=== PATIENT | male | born 1995 | race Caucasian/White ===

== ENCOUNTER 2018-03-30 05:42 | Inpatient (IN) | payer MEDICAID ==
[~2018-03-30] VITALS: Ht 182.9 cm; Wt 113.4 kg
[2018-03-30 05:50] VITALS: BP 143/95
[2018-03-30] MEDS ORDERED: ACETAMINOPHEN EXTRA STRENGTH 500 MG TAB PO ONE (06:50)
[2018-03-30] MEDS ORDERED: BACITRACIN OINT 500 UNITS/GM PKT TP ONE (06:50)
[2018-03-30] MEDS ORDERED: KETOROLAC 30 MG/ML VIAL IM ONE (06:50)
[2018-03-30] MEDS ORDERED: PIPERACILLIN/TAZOBACTAM 3.375 GM in DEXTROSE 5% 50 ML IV ONE (08:05)
[2018-03-30 08:50] LABS: HEMOGLOBIN 18.3 g/dL (12.0-18.0)
[2018-03-30] MEDS ORDERED: PIPERACILLIN/TAZOBACTAM 3.375 GM VIAL IV ONE (08:52)
[2018-03-30 09:01] LABS: ANION GAP 23.3 (8-16); CARBON DIOXIDE 23.4 mmol/L (21-32); CHLORIDE 100 mmol/L (98-107); CREATININE 2.4 mg/dL (0.7-1.3); GFR ARICAN-AMERICAN 44 mL/min (>90); GLUCOSE 139 mg/dL (74-106); POTASSIUM 4.7 mmol/L (3.5-5.1); SODIUM SERUM 142 mmol/L (136-145); UREA NITROGEN, BLOOD 29 mg/dL (7-18)
[2018-03-30 09:02] LABS: HEMATOCRIT 54.5 % (36-52); MEAN CORPUSCULAR HEMOGLOBIN 31 pg (27-31); MEAN CORPUSCULAR HGB CONC 34 g/dL (33-37); MEAN CORPUSCULAR VOLUME 92.2 fL (80-94); PLATELET COUNT (AUTO) 275 K/uL (140-450); RED BLOOD CELL COUNT(AUTO) 5.91 MIL/uL (4.20-6.10)
[2018-03-30 09:08] LABS: ACETAMINOPHEN < 0.5 ug/ml (10-30); ALBUMIN 4.9 g/dL (3.4-5.0); ASPARTATE AMINOTRANSFERASE 230 U/L (15-37); SALICYLATE < 2.8 mg/dL (2.8-20.0); TOTAL BILIRUBIN 1.3 mg/dL (0.0-1.0)
[2018-03-30 09:19] LABS: WHITE BLOOD COUNT (AUTO) 30.5 K/uL (4.8-10.8)
[2018-03-30 09:20] LABS: LYMPHOCYTES % (MANUAL) 5 % (20-46); MONOCYTES % (MANUAL) 4 % (5-12)
[2018-03-30] MEDS ORDERED: NACL 0.9% 2,000 ML IV SCH (09:28)
[2018-03-30] MEDS ORDERED: VANCOMYCIN 1,000 MG in DEXTROSE 5% 250 ML IV ONE (09:30)
[2018-03-30] MEDS ORDERED: fentaNYL 0.05 MG/ML VIAL IVP ONE (09:30)
[2018-03-30] MEDS ORDERED: VANCOMYCIN 1,000 MG VIAL ONE (09:45)
[2018-03-30] MEDS ORDERED: ZOLPIDEM 5 MG TAB PO PRN (11:00)
[2018-03-30] MEDS ORDERED: ACETAMINOPHEN 325 MG TAB PO PRN (11:00)
[2018-03-30] MEDS ORDERED: LORazepam 2 MG/ML VIAL IM/IVP PRN (11:00)
[2018-03-30] MEDS ORDERED: DOCUSATE SODIUM 100 MG GELCAP PO PRN (11:00)
[2018-03-30] MEDS ORDERED: ONDANSETRON 4 MG/2 ML VIAL IM/IVP PRN (11:00)
[2018-03-30 11:44] VITALS: BP 142/91
[2018-03-30 11:50] LABS: PROTHROMBIN TIME 10.1 secs (10.8-13.4)
[2018-03-30] MEDS ORDERED: LORazepam 2 MG/ML VIAL IVP PRN (12:30)
[2018-03-30] MEDS ORDERED: VANCOMYCIN PER PHARMACY MC PRN (12:30)
[2018-03-30 12:57] LABS: MAGNESIUM 2.9 mg/dL (1.8-2.4); PHOSPHORUS 5.5 mg/dL (2.5-4.9); THYROID STIMULATING HORMONE 0.79 uIU/mL (0.34-3.74)
[2018-03-30] MEDS: NACL 0.9% 1,000 ML IV SCH ×4 (12:59→23:06)
[2018-03-30] MEDS: PIPER/TAZO 3.375GM/D5W PREMIX 50 ML IV SCH ×2 (13:00→20:28)
[2018-03-30] MEDS ORDERED: CALCIUM ACETATE 667 MG TAB PO SCH (13:37)
[2018-03-30 14:30] LABS: PROTHROMBIN TIME 10.5 secs (10.8-13.4)
[2018-03-30] MEDS: HYDROcodone/APAP 5/325 MG 1 TAB TAB PO PRN ×2 (15:59→20:28)
[2018-03-30 16:00] VITALS: BP 134/85
[2018-03-30 20:30] VITALS: BP 152/81
[2018-03-30] MEDS ORDERED: VANCOMYCIN 1GM/DEXT 5% PREMIX 200 ML IV SCH (23:00)
[2018-03-31] VITALS: BP 117/84
[2018-03-31 00:42] LABS: BARBITURATE, URINE NEG. ng/ml (NEG <=200); BENZODIAZEPINE, URINE NEG. ng/mL (NEG <=200); CANNABINOID, URINE POS. ng/mL (NEG <=50); COCAINE, URINE NEG. ng/mL (NEG <=300); OPIATE, URINE NEG. ng/mL (NEG <=2000); PHENCYCLIDINE SCREEN,URINE NEG. ng/mL (NEG <=25)
[2018-03-31 00:58] LABS: APPEARANCE,URINE SL CLOUDY (CLEAR); BILIRUBIN,URINE 1+ (NEGATIVE); BLOOD, URINE 3+ (NEGATIVE); COLOR,URINE YELLOW (YELLOW); LEUKOCYTE ESTERASE ,URINE NEGATIVE (NEGATIVE); NITRITE, URINE NEGATIVE (NEGATIVE); PH,URINE 5.5 (5.0-9.0); UGLUCOSE NEGATIVE (NEGATIVE)
[2018-03-31 01:00] LABS: RBC,URINE 3-10 (FEW) /HPF (0-5); WBC,URINE 0-5 (RARE) /HPF (0-5)
[2018-03-31 01:01] LABS: HYALINE CASTS, URINE 0-10 /LPF (None Seen); URIC ACID CRYSTALS,URINE 0-10 /HPF (None Seen); URINE AMORPHOUS URATE 3+ /HPF (None Seen)
[2018-03-31] MEDS: HYDROcodone/APAP 10/325 MG 1 TAB TAB PO PRN ×2 (01:05→05:51)
[2018-03-31 04:00] VITALS: BP 122/71
[2018-03-31] MEDS: PIPER/TAZO 3.375GM/D5W PREMIX 50 ML IV SCH ×3 (04:46→21:12)
[2018-03-31 07:04] LABS: BASOPHILS % (AUTO) 0.2 % (0.0-2.0); EOSINOPHILS # (AUTO) 0.1 K/uL (0-0.4); EOSINOPHILS % (AUTO) 0.8 % (0.0-4.0); HEMATOCRIT 43.4 % (36-52); HEMOGLOBIN 14.5 g/dL (12.0-18.0); LYMPHOCYTES # (AUTO) 2.5 K/uL (2.0-11.5); LYMPHOCYTES % (AUTO) 18.3 % (20.5-51.1); MEAN CORPUSCULAR HEMOGLOBIN 31 pg (27-31); MEAN CORPUSCULAR HGB CONC 34 g/dL (33-37); MEAN CORPUSCULAR VOLUME 93.2 fL (80-94); MONOCYTES % (AUTO) 7.5 % (1.7-9.3); NEUTROPHILS # (AUTO) 10.1 K/uL (1.8-7.7); NEUTROPHILS % (AUTO) 73.2 % (42.2-75.2); PLATELET COUNT (AUTO) 203 K/uL (140-450); RED BLOOD CELL COUNT(AUTO) 4.65 MIL/uL (4.20-6.10); WHITE BLOOD COUNT (AUTO) 13.8 K/uL (4.8-10.8)
[2018-03-31] MEDS: NACL 0.9% 1,000 ML IV SCH ×2 (07:41→13:46)
[2018-03-31 08:00] VITALS: BP 128/68
[2018-03-31 08:17] LABS: ANION GAP 13.2 (8-16); CARBON DIOXIDE 27.4 mmol/L (21-32); CREATININE 1.3 mg/dL (0.7-1.3); POTASSIUM 4.6 mmol/L (3.5-5.1)
[2018-03-31 08:22] LABS: MAGNESIUM 2.6 mg/dL (1.8-2.4); PHOSPHORUS 2.8 mg/dL (2.5-4.9)
[2018-03-31] MEDS: VANCOMYCIN 1GM/DEXT 5% PREMIX 200 ML IV SCH ×2 (09:29→17:30)
[2018-03-31] MEDS: LACTOBACILLUS RHAMNOSUS GG 1 EACH CAP PO SCH (09:33)
[2018-03-31] MEDS: THIAMINE 100 MG TAB PO SCH (09:33)
[2018-03-31] MEDS: ARIPiprazole 10 MG TAB PO SCH (09:33)
[2018-03-31] MEDS: MULTIVITAMIN 1 TAB PO SCH (09:33)
[2018-03-31] MEDS: FOLIC ACID 1 MG TAB PO SCH (09:33)
[2018-03-31 12:00] VITALS: BP 131/66
[2018-03-31] MEDS: KETOROLAC 30 MG/ML VIAL IVP PRN ×2 (13:33→21:12)
[2018-03-31 16:00] VITALS: BP 141/91
[2018-03-31 20:00] VITALS: BP 126/64
[2018-04-01] VITALS: BP 112/61
[2018-04-01] MEDS: VANCOMYCIN 1GM/DEXT 5% PREMIX 200 ML IV SCH (00:21)
[2018-04-01 04:00] VITALS: BP 111/64
[2018-04-01] MEDS: PIPER/TAZO 3.375GM/D5W PREMIX 50 ML IV SCH ×3 (04:31→21:16)
[2018-04-01] MEDS: NACL 0.9% 1,000 ML IV SCH ×2 (04:31→16:09)
[2018-04-01 07:55] LABS: BASOPHILS # (AUTO) 0.1 K/uL (0.00-0.22); BASOPHILS % (AUTO) 0.6 % (0.0-2.0); EOSINOPHILS # (AUTO) 0.1 K/uL (0-0.4); EOSINOPHILS % (AUTO) 1.4 % (0.0-4.0); HEMATOCRIT 42.5 % (36-52); HEMOGLOBIN 14.6 g/dL (12.0-18.0); LYMPHOCYTES # (AUTO) 1.9 K/uL (2.0-11.5); LYMPHOCYTES % (AUTO) 17.6 % (20.5-51.1); MEAN CORPUSCULAR HEMOGLOBIN 32 pg (27-31); MEAN CORPUSCULAR HGB CONC 34 g/dL (33-37); MEAN CORPUSCULAR VOLUME 92.1 fL (80-94); MONOCYTES # (AUTO) 0.8 K/uL (0.8-1.0); MONOCYTES % (AUTO) 7.9 % (1.7-9.3); NEUTROPHILS # (AUTO) 7.7 K/uL (1.8-7.7); NEUTROPHILS % (AUTO) 72.5 % (42.2-75.2); PLATELET COUNT (AUTO) 207 K/uL (140-450); RED BLOOD CELL COUNT(AUTO) 4.62 MIL/uL (4.20-6.10); RED CELL DISTRIBUTION WIDTH 12.6 % (11.6-13.7); WHITE BLOOD COUNT (AUTO) 10.6 K/uL (4.8-10.8)
[2018-04-01 08:00] VITALS: BP 112/47
[2018-04-01 08:01] LABS: ANION GAP 12.7 (8-16); CARBON DIOXIDE 28.5 mmol/L (21-32); CREATININE 0.9 mg/dL (0.7-1.3); POTASSIUM 4.2 mmol/L (3.5-5.1)
[2018-04-01 08:45] LABS: MAGNESIUM 2.1 mg/dL (1.8-2.4); PHOSPHORUS 3.3 mg/dL (2.5-4.9)
[2018-04-01] MEDS: FOLIC ACID 1 MG TAB PO SCH (09:05)
[2018-04-01] MEDS: MULTIVITAMIN 1 TAB PO SCH (09:05)
[2018-04-01] MEDS: ARIPiprazole 10 MG TAB PO SCH (09:05)
[2018-04-01] MEDS: THIAMINE 100 MG TAB PO SCH (09:05)
[2018-04-01] MEDS: HYDROcodone/APAP 10/325 MG 1 TAB TAB PO PRN (09:06)
[2018-04-01] MEDS: LACTOBACILLUS RHAMNOSUS GG 1 EACH CAP PO SCH (09:06)
[2018-04-01 10:04] LABS: CKMB RELATIVE INDEX 0.4 (0.0-2.5); CREATINE KINASE MB 22.8 ng/mL (0-3.6)
[2018-04-01] MEDS: VANCOMYCIN 1,250 MG in DEXTROSE 5% 250 ML IV SCH ×2 (10:42→17:49)
[2018-04-01 12:00] VITALS: BP 124/75
[2018-04-01] MEDS ORDERED: SULF-59 PO (14:19)
[2018-04-01] MEDS ORDERED: LEVO750T2 PO (14:19)
[2018-04-01] MEDS ORDERED: LACT10CA1 PO (14:19)
[2018-04-01] MEDS: KETOROLAC 30 MG/ML VIAL IVP PRN ×2 (15:06→21:17)
[2018-04-01 16:00] VITALS: BP 99/62
[2018-04-01 20:00] VITALS: BP 116/85
[2018-04-02] VITALS: BP 115/80
[2018-04-02] MEDS: VANCOMYCIN 1,250 MG in DEXTROSE 5% 250 ML IV SCH (02:00)
[2018-04-02 04:00] VITALS: BP 124/63
[2018-04-02] MEDS: NACL 0.9% 1,000 ML IV SCH (04:39)
[2018-04-02] MEDS: PIPER/TAZO 3.375GM/D5W PREMIX 50 ML IV SCH ×2 (05:35→13:28)
[2018-04-02] MEDS: KETOROLAC 30 MG/ML VIAL IVP PRN (06:45)
[2018-04-02 07:02] LABS: BASOPHILS % (AUTO) 0.4 % (0.0-2.0); EOSINOPHILS # (AUTO) 0.2 K/uL (0-0.4); EOSINOPHILS % (AUTO) 2.8 % (0.0-4.0); LYMPHOCYTES # (AUTO) 2.2 K/uL (2.0-11.5); LYMPHOCYTES % (AUTO) 24.7 % (20.5-51.1); MEAN CORPUSCULAR HEMOGLOBIN 31 pg (27-31); MEAN CORPUSCULAR HGB CONC 34 g/dL (33-37); MONOCYTES # (AUTO) 0.7 K/uL (0.8-1.0); MONOCYTES % (AUTO) 7.8 % (1.7-9.3); NEUTROPHILS # (AUTO) 5.6 K/uL (1.8-7.7); NEUTROPHILS % (AUTO) 64.3 % (42.2-75.2); PLATELET COUNT (AUTO) 208 K/uL (140-450); RED BLOOD CELL COUNT(AUTO) 4.45 MIL/uL (4.20-6.10); RED CELL DISTRIBUTION WIDTH 12.9 % (11.6-13.7); WHITE BLOOD COUNT (AUTO) 8.8 K/uL (4.8-10.8)
[2018-04-02 07:25] LABS: ANION GAP 10.8 (8-16); CARBON DIOXIDE 28.9 mmol/L (21-32); CREATININE 0.8 mg/dL (0.7-1.3); POTASSIUM 4.7 mmol/L (3.5-5.1)
[2018-04-02 08:00] VITALS: BP 125/71
[2018-04-02] MEDS: FOLIC ACID 1 MG TAB PO SCH (08:38)
[2018-04-02] MEDS: THIAMINE 100 MG TAB PO SCH (08:38)
[2018-04-02] MEDS: MULTIVITAMIN 1 TAB PO SCH (08:38)
[2018-04-02] MEDS: LACTOBACILLUS RHAMNOSUS GG 1 EACH CAP PO SCH (08:38)
[2018-04-02] MEDS: ARIPiprazole 10 MG TAB PO SCH (08:38)
[2018-04-02] MEDS ORDERED: VANCOMYCIN 1,500 MG in NACL 0.9% 500 ML IV SCH (11:00)
[2018-04-02] MEDS: HYDROcodone/APAP 10/325 MG 1 TAB TAB PO PRN (12:33)
[2018-04-02 14:03] VITALS: BP 102/58
[2018-04-02] MEDS ORDERED: HYDR-5123 PO (14:23)
== END 2018-04-02 16:10 | disposition home health service (06) | DRG 812 ==
LOC: MED 05:42 → MTU 11:00
PROVIDERS: ADMIT General Practice; ATTEND General Practice
PROC: 3E0234Z Introduction of Serum, Toxoid and Vaccine into Muscle, Percutaneous Approach (ICD-10-PCS; principal; 2018-03-30)
DX: T40.7X1A Poisoning by cannabis (derivatives), accidental (unintentional), initial encounter (principal); N17.0 Acute kidney failure with tubular necrosis; A41.9 Sepsis, unspecified organism; G92 Toxic encephalopathy; L03.115 Cellulitis of right lower limb; E83.39 Other disorders of phosphorus metabolism; E83.41 Hypermagnesemia; L03.116 Cellulitis of left lower limb; M62.82 Rhabdomyolysis; F31.9 Bipolar disorder, unspecified; W01.0XXA Fall on same level from slipping, tripping and stumbling without subsequent striking against object, initial encounter; F15.10 Other stimulant abuse, uncomplicated; F12.10 Cannabis abuse, uncomplicated; E86.0 Dehydration; M25.561 Pain in right knee; K70.9 Alcoholic liver disease, unspecified; X31.XXXA Exposure to excessive natural cold, initial encounter; Z23 Encounter for immunization; Z82.49 Family history of ischemic heart disease and other diseases of the circulatory system; Y93.89 Activity, other specified; Y92.89 Other specified places as the place of occurrence of the external cause; Y99.8 Other external cause status; Z87.891 Personal history of nicotine dependence; Z71.51 Drug abuse counseling and surveillance of drug abuser
CPT/HCPCS: 36415; 70450; 71045; 72125; 73562; 73610; 73630; 76700; 80048; 80053; 80202; 80305; 81001; 82550; 82553; 83036; 83605; 83690; 83735; 83874; 84100; 84134; 84443; 84484; 85025; 85610; 85730; 87040; 87070; 87081; 87186; 90471; 90715; 93005; 96361; 96365; 96367; 96372; 96375; 99285; G0480; G0482; J1885; J2543; J3010; J3370; J7030; J7060; Q0092

== ENCOUNTER 2018-06-19 10:16 | Emergency (ER) | payer MEDICAID ==
[~2018-06-19] VITALS: Ht 185.4 cm; Wt 97.5 kg
[~2018-06-19 10:16] MED LIST: HYDR-5123 PO; LACT10CA1 PO; LEVO750T2 PO; SULF-59 PO
--- NOTE | 2018-06-19 10:17 | NUR ---
PT BIBA BLS WITH [place] [employer] ON 5150 TO BED 5
[2018-06-19 10:29] VITALS: BP 162/111
[2018-06-19] MEDS ORDERED: NACL 0.9% 1,000 ML IV ONE ×2 (10:30→11:05)
--- NOTE | 2018-06-19 10:35 | NUR ---
BIBA ON HOLD FOR SI. UNWITTNESSED INGESTION OF 1 UNOPENED BOTTLE OF SLEEP AID QTY. 100 (DIPHENHYDRAMINE 25MG). PT DENIES N/V/D/ RECENT ILLNESS. PT STATES HE "HAS HAD BODY PARTS STOLEN FROM HIM." PT STATES 0/10 PAIN AT THIS TIME. PT IS SINUS TACHY AT 136, 02 SAT 98% RA. PT IS VERY SLOW TO COMPREHEND QUESTIONS AND REPLY TO STATEMENTS. SKIN IS PINK/WARM/DRY; AAOX4 WITH EVEN AND STEADY GAIT; PATIENT POSITIONED FOR COMFORT; HOB ELEVATED; BEDRAILS UP X1; BED DOWN. ER MD MADE AWARE OF PT STATUS. SUICIDE PRECAUTIONS IN PLACE, SITTER AT BEDSIDE.
[2018-06-19 10:52] LABS: BASOPHILS % (AUTO) 0.4 % (0.0-2.0); EOSINOPHILS % (AUTO) 0.2 % (0.0-4.0); HEMATOCRIT 46.5 % (36-52); HEMOGLOBIN 16.5 g/dL (12.0-18.0); LYMPHOCYTES # (AUTO) 0.8 K/uL (2.0-11.5); LYMPHOCYTES % (AUTO) 9.3 % (20.5-51.1); MEAN CORPUSCULAR HEMOGLOBIN 32 pg (27-31); MEAN CORPUSCULAR HGB CONC 36 g/dL (33-37); MEAN CORPUSCULAR VOLUME 89.5 fL (80-94); MONOCYTES # (AUTO) 0.8 K/uL (0.8-1.0); NEUTROPHILS # (AUTO) 6.9 K/uL (1.8-7.7); NEUTROPHILS % (AUTO) 81.1 % (42.2-75.2); PLATELET COUNT (AUTO) 201 K/uL (140-450); RED BLOOD CELL COUNT(AUTO) 5.19 MIL/uL (4.20-6.10); RED CELL DISTRIBUTION WIDTH 12.1 % (11.6-13.7); WHITE BLOOD COUNT (AUTO) 8.6 K/uL (4.8-10.8)
--- NOTE | 2018-06-19 11:02 | NUR ---
SPOKE TO OBI FROM POISON CONTROL REGARDING PATIENT. RECOMMENDATIONS: EKG,TYLENOL,ASPIRIN,CK,MAGNESIUM,CALCIUM,BLOOD ALCOHOL LEVELS. URINE DRUG SKIN. SEIZURE PRECAUTION. DR. NORIEGA MADE AWARE
[2018-06-19 11:10] LABS: ALBUMIN 4.4 g/dL (3.4-5.0); ANION GAP 24.4 (8-16); ASPARTATE AMINOTRANSFERASE 18 U/L (15-37); CARBON DIOXIDE 17.3 mmol/L (21-32); CHLORIDE 100 mmol/L (98-107); GFR ARICAN-AMERICAN 120 mL/min (>90); GLUCOSE 104 mg/dL (74-106); SALICYLATE 4.2 mg/dL (2.8-20.0); SODIUM SERUM 139 mmol/L (136-145); TOTAL BILIRUBIN 0.6 mg/dL (0.0-1.0); UREA NITROGEN, BLOOD 5 mg/dL (7-18)
[2018-06-19 11:19] LABS: ACETAMINOPHEN < 0.5 ug/ml (10-30); POTASSIUM 2.7 mmol/L (3.5-5.1)
--- NOTE | 2018-06-19 11:30 | NUR ---
PT RESTING IN BED, NO ACUTE DISTRESS NOTED. SITTER AT BEDSIDE
[2018-06-19] MEDS ORDERED: POTASSIUM CHLORIDE 10 MEQ TABER PO ONE (11:35)
--- NOTE | 2018-06-19 12:14 | NUR ---
URINE COLLECTED AND SENT TO LAB
[2018-06-19 12:17] VITALS: BP 152/103
--- NOTE | 2018-06-19 12:34 | NUR ---
PT RESTING IN BED, SITTER AT BEDSIDE
[2018-06-19 13:51] LABS: BARBITURATE, URINE NEGATIVE ng/ml (NEG <=200); BENZODIAZEPINE, URINE NEGATIVE ng/mL (NEG <=200); CANNABINOID, URINE NEGATIVE ng/mL (NEG <=50); COCAINE, URINE NEGATIVE ng/mL (NEG <=300); OPIATE, URINE NEGATIVE ng/mL (NEG <=2000); PHENCYCLIDINE SCREEN,URINE NEGATIVE ng/mL (NEG <=25)
--- NOTE | 2018-06-19 13:55 | NUR ---
PATIENT RIPPED OUT IV AND RAN OFF THE UNIT AND OUT TO THE PARKING LOT. PD CALLED.
--- NOTE | 2018-06-19 13:56 | NUR ---
PATIENT STATED HE WANTS TO GO THE BATHROOM/COMMODE PROVIDED. PATIENT TOOK OFF IV FLUIDS AND STARTED RUNNING TOWARDS 2 LOCK DOORS THE GONE OUT TO THE DOUBLE DOORS TOWARDS ADMITTING. SECURITY/VICTORIA.PD ALERTED, CODE YANEZ ACTIVATED.
--- NOTE | 2018-06-19 14:08 | NUR ---
RUSLAN FROM POISON CONTROL CALLED FOR UPDATE. INFORMED RUSLAN THAT PATIENT JUST ELOPED. RUSLAN MADE AWARE THAT BEFORE THE ELOPEMENT,PATIENT AWAKE/ALERT/FORGETFUL WITH CONFUSION.
[2018-06-20] MEDS ORDERED: RISP0.5T3 PO (13:41)
[2018-06-20] MEDS ORDERED: RIS1 PO (17:34)
--- NOTE | 2018-06-24 06:53 | NUR ---
Late entry. IV bolus completed at 1230. IV at 100cc/hr ended at 1350
== END 2018-06-19 13:56 | disposition left against medical advice (07) ==
LOC: MED 10:16
DX: R41.82 Altered mental status, unspecified (principal); E87.6 Hypokalemia; R45.851 Suicidal ideations; F20.9 Schizophrenia, unspecified; R00.0 Tachycardia, unspecified; Z79.899 Other long term (current) drug therapy
CPT/HCPCS: 36415; 80053; 80305; 82550; 85025; 93005; 96360; 96361; 99285; G0480; G0482; J7030; 99284

== ENCOUNTER 2018-06-19 14:30 | Inpatient (IN) | payer MEDICAID ==
[~2018-06-19] VITALS: Ht 185.4 cm; Wt 92.5 kg
--- NOTE | 2018-06-19 14:30 | NUR ---
BIB POLICE. PATIENT BROUGHT BACK TO ER AFTER ELOPING. BROUGHT IN EARLIER FOR ATTEMPTED SUICIDE.
[2018-06-19 14:36] VITALS: BP 141/86
--- NOTE | 2018-06-19 14:36 | NUR ---
PT BIB [place] [employer] AFTER ELOPEMENT
[2018-06-19] MEDS ORDERED: ZOLPIDEM 5 MG TAB PO PRN (14:55)
[2018-06-19] MEDS ORDERED: HYDROcodone/APAP 5/325 MG 1 TAB TAB PO PRN (14:55)
[2018-06-19] MEDS ORDERED: ONDANSETRON 4 MG/2 ML VIAL IM/IVP PRN (14:55)
[2018-06-19] MEDS ORDERED: ACETAMINOPHEN 325 MG TAB PO PRN (14:55)
[2018-06-19] MEDS ORDERED: MORPHINE SULFATE 2 MG/ML SYR IVP PRN (14:55)
[2018-06-19] MEDS ORDERED: DOCUSATE SODIUM 100 MG GELCAP PO PRN (14:55)
--- NOTE | 2018-06-19 15:15 | NUR ---
URINE COLLECTED AND SENT TO LAB
--- NOTE | 2018-06-19 15:30 | NUR ---
RECEIVED REPORT FROM CHARGE NURSE. PATIENT ARRIVED FROM ER. PATIENT AWAKE AND ALERT, LYING ON BED. DX OF SI. RESPIRATIONS EVEN AND UNLABORED ON ROOM AIR, VS WNL. 1:1 SITTER ORDERED WITH SOFT RESTRAINT IN PLACE. DENIES ANY SUICIDAL IDEATION AT THE MOMENT, PATIENT QUIET AND COOPERATIVE. NO SIGN OF AGGRESSIVE BEHAVIOR AT THIS TIME. IV SITE TO RIGHT AC, CURRENTLY SL, ASYMPTOMATIC, INTACT. UPDATED PATIENT WITH PLAN OF CARE, PATIENT VERBALIZED UNDERSTANDING, SAFETY PRECAUTIONS IN PLACE, BED IN LOW LOW LOCKED POSITION. WILL CONTINUE TO MONITOR.
--- NOTE | 2018-06-19 15:32 | NUR ---
PT TAKEN TO TELE FLOOR BY RNS RE AND AMADEO
--- NOTE | 2018-06-19 15:51 | NUR ---
PT ADMITTED TO [facility] BED 109B
[2018-06-19 16:00] VITALS: BP 141/94
--- NOTE | 2018-06-19 16:15 | NUR ---
SOFT RESTRAINTS BACK ON. PATIENT'S FAMILY AT BEDSIDE. NO SIGN OF AGGRESSIVE BEHAVIOR AT THIS TIME. SAFETY PRECAUTIONS IN PLACE, 1:1 SITTER AT SIDE, WILL CONTINUE TO MONITOR PATIENT.
--- NOTE | 2018-06-19 16:20 | NUR ---
DR. BANKS IN TO SEE THE PATIENT. WILL WAIT FOR HIS EVALUATION AND ORDERS.
--- NOTE | 2018-06-19 16:30 | NUR ---
RESTRAINTS REMOVED FOR CIRCULATION AND TOILETRIES. PATIENT'S FAMILY AT BEDSIDE. NO SIGN OF AGGRESSIVE BEHAVIOR AT THIS TIME. PATIENT DID STATE THAT HE WANTED TO "SLEEP FOREVER". NO PLAN AT THIS TIME. SAFETY PRECAUTIONS IN PLACE, 1:1 SITTER AT SIDE, WILL CONTINUE TO MONITOR PATIENT.
[2018-06-19 16:34] LABS: PROTHROMBIN TIME 10.9 secs (10.8-13.4)
[2018-06-19] MEDS: NACL 0.9% 1,000 ML IV SCH (17:00)
--- NOTE | 2018-06-19 17:30 | NUR ---
RESTRAINTS REMOVED FOR PATIENT TO EAT DINNER. PATIENT QUIET BUT COOPERATIVE. PARENTS AT BEDSIDE. MRSA SCREENING DONE. PICTURE OF RIGHT BIG TOE WOUND TAKEN. SAFETY PRECAUTIONS IN PLACE, 1:1 SITTER AT SIDE. WILL CONTINUE TO MONITOR PATIENT.
[2018-06-19] MEDS ORDERED: LORazepam 2 MG/ML VIAL IM/IVP PRN (18:40)
[2018-06-19] MEDS ORDERED: POTASSIUM CHLORIDE 10 MEQ TABER PO SCH (19:00)
--- NOTE | 2018-06-19 19:19 | NUR ---
REPORT GIVEN TO LUMBER RACKER NURSE AT BEDSIDE FOR CONTINUITY OF CARE. PATIENT LYING IN BED, PATIENT IN STABLE CONDITION.
--- NOTE | 2018-06-19 19:20 | NUR ---
RECEIVED PATIENT AWAKE LYING ON BED WITH FAMILY MEMBERS AT BEDSIDE. PATIENT 1:1 SITTER WITH SOFT RESTRAINT IN PLACE. DENIES ANY SUICIDAL IDEATION.NO SIGN OF AGGRESSIVE BEHAVIOR AT THIS TIME. BED IN LOW LOW LOCKED POSITION. EXPLAINED PLAN OF CARE. WILL CONTINUE TO MONITOR.
[2018-06-19 20:00] VITALS: BP 123/87
--- NOTE | 2018-06-19 21:00 | NUR ---
SOFT RESTRAINTS RELEASE FOR CIRCULATION AND BATHROOM BREAK. SKIN CHECK DONE, GOOD CIRCULATION NOTED. NO SIGN OF SUICIDAL/HOMICIDAL IDEATION.1:1 SITTER AT BEDSIDE.
--- NOTE | 2018-06-19 21:00 | NUR ---
SEEN PATIENT RESTING ON BED WITH SOFT RESTRAINTS IN PLACE. SITTER IN FRONT OF THE DOOR FOR CONSTANT OBSERVATION. NO S/S OF SUICIDAL IDEATION NOTED AT THIS TIME. BED IN LOW LOCKED POSITION. WILL CONTINUE TO MONITOR.
--- NOTE | 2018-06-19 22:36 | NUR ---
SEEN X-RAY PORTABLE TRACK CREW CHIEF IN THE PATIENT ROOM.
--- NOTE | 2018-06-19 23:40 | NUR ---
PATIENT TAKEN TO RADIOLOGY FOR CT SCAN BY WC. PATIENT IN STABLE CONDITION.
[2018-06-20] VITALS: BP 136/95
--- NOTE | 2018-06-20 00:05 | NUR ---
PATIENT BACK TO ROOM FROM CT.
--- NOTE | 2018-06-20 00:06 | NUR ---
V/S TAKEN AND RECORDED. 1:1 SITTER FOR CONSTANT OBSERVATION. NO SUICIDAL IDEATION PRESENTED. WILL CONTINUE TO MONITOR.
--- NOTE | 2018-06-20 02:00 | NUR ---
1:1 SITTER AT BEDSIDE. CHECKED PATIENT ASLEEP. NO SI/HI NOTED. ALL NEEDS ATTENDED. RESTRAINTS RELEASE AND CHECK FOR CIRCULATION WNL. BED IN LOW LOCKED POSITION. ALL PRECAUTIONARY MEASURES APPLIED. WILL CONTINUE TO MONITOR.
[2018-06-20 04:00] VITALS: BP 121/82
--- NOTE | 2018-06-20 04:00 | NUR ---
SEEN RESTING COMFORTABLY IN BED WITH SOFT RESTRAINTS ON BOTH HANDS. NO SUICIDAL IDEATION NOTED. ALL NEEDS ATTENDED. 1:1 SITTER FOR CONSTANT WATCH.
[2018-06-20] MEDS: LORazepam 2 MG/ML VIAL IM/IVP PRN (06:44)
--- NOTE | 2018-06-20 07:15 | NUR ---
ENDORSEMENT GIVEN TO AM SHIFT RN AT BEDSIDE. CALL LIGHT WITHIN REACH. 1:1 SITTER AT BEDSIDE. PATIENT IN STABLE CONDITION.
--- NOTE | 2018-06-20 07:17 | NUR ---
RECEIVED BEDSIDE REPORT FROM COSMETIC SALES ASSISTANT NURSE. PATIENT IS RESTING ON BED AT THIS TIME. AOX 3, TO NAME, PLACE, AND TIME. ABLE TO MAKE NEEDS KNOWN. RESPIRATION ASYMMETRICAL AND UNLABORED. DENIES PAIN AND NO SIGNS OF DISTRESS NOTED. IV ON R AC 20 , INTACT AND PATIENT, INFUSING PER MD ORDER. SKIN CLEAN AND DRY. ABLE TO AMBULATE WITH STEADY GAIT. URANAL IS AT BEDSIDE. 1:1 SITTER WITH SOFT WRIST RESTRAINT IN PLACE. TELE MONITOR ATTACHED. DENIES ANY SUICIDAL IDEATION. NO SIGN OF AGGRESSIVE BEHAVIOR AT THIS TIME. DISCUSSED PLAN OF CARE WITH PATIENT, AND PATIENT VERBALIZED UNDERSTANDING. BED IN LOW LOW LOCKED POSITION.
[2018-06-20 08:00] VITALS: BP 114/74
[2018-06-20 08:01] LABS: MAGNESIUM 1.8 mg/dL (1.8-2.4); PHOSPHORUS 3.1 mg/dL (2.5-4.9); THYROID STIMULATING HORMONE 1.32 uIU/mL (0.34-3.74)
--- NOTE | 2018-06-20 08:46 | NUR ---
PATIENT HAS BEEN SCREENED AND CATEGORIZED LOW NUTRITION RISK. PATIENT WILL BE SEEN WITHIN 7 DAYS OF ADMISSION. 06/26/[address]
[2018-06-20] MEDS ORDERED: OLANZapine 5 MG TAB PO SCH (09:00)
[2018-06-20] MEDS: MULTIVITAMIN 1 TAB PO SCH (09:27)
[2018-06-20] MEDS: NACL 0.9% 1,000 ML IV SCH (09:27)
--- NOTE | 2018-06-20 09:28 | NUR ---
ADMINISTERED MEDICATIONS PER MD ORDER. PATIENT TOLERATED WELL. DENIES ANY SUICIDAL IDEATION AT THIS TIME. NO SIGN OF AGGRESSIVE BEHAVIORS AT THIS TIME. RELEASED RESTRAINTS AND PERFORMED ROM.
--- NOTE | 2018-06-20 09:45 | NUR ---
PATIENT'S SISTER SHARLA IS AT BEDSIDE AND TALKING TO PATIENT. NO AGGRESSIVE BEHAVIORS NOTED AT THIS TIME.
--- NOTE | 2018-06-20 10:00 | NUR ---
DR HAMILTON IS TALKING TO PATIENT AND PATIENT'S SISTER SHARLA AT BEDSIDE.
--- NOTE | 2018-06-20 11:26 | NUR ---
PATIENT'S PARENTS AND SISTER ARE AT BEDSIDE TALKING TO PATIENT. PATIENT IS SITTING UP ON BED. DENIED SUICIDAL IDEATION. NO AGGRESSIVE BEHAVIOR NOTED.
--- NOTE | 2018-06-20 12:05 | NUR ---
CM NOTE PER ATTENDING PHYSICIAN/RESIDENT DR. BANKS, THE PATIENT IS NOT YET MEDICALLY CLEARED AT THIS TIME, WAITING FOR POTASSIUM LEVEL AND PODIATRY CONSULT BUT WILL NEED TO GO TO PSYCH FACILITY WHEN MEDICALLY CLEARED. FAXED [phone] AND CLINICAL PACKET TO [facility] [phone] # [phone] AND INFORMED THEM WAITING FOR PATIENT TO BE MEDICALLY CLEARED. I GAVE [facility] THE NUMBER TO THE NURSING STATION WHERE PATIENT IS IN CASE THEY CALL AT A LATER TIME. DR. BANKS AWARE.
[2018-06-20 12:06] LABS: ANION GAP 18.7 (8-16); CARBON DIOXIDE 23.1 mmol/L (21-32); CREATININE 0.9 mg/dL (0.7-1.3); POTASSIUM 3.8 mmol/L (3.5-5.1)
[2018-06-20 12:27] VITALS: BP 108/66
[2018-06-20] MEDS: NACL 0.45% 1,000 ML IV SCH (13:27)
--- NOTE | 2018-06-20 13:29 | NUR ---
PATIENT IS RESTING ON BED AT THIS TIME. DENIES SUICIDAL IDEATION. NO AGGRESSIVE BEHAVIOR NOTED. SAFETY MEASURES IN PLACE.
[2018-06-20] MEDS ORDERED: RISP0.5T3 PO (13:41)
[2018-06-20] MEDS ORDERED: POTASSIUM CHLORIDE 10 MEQ TABER PO SCH (14:00)
--- NOTE | 2018-06-20 14:32 | NUR ---
911 Emergency Dispatcher Note: I called patient's sister Marilou Sumner to obtain information about patient, no answer, left message.
--- NOTE | 2018-06-20 15:09 | NUR ---
No updates from contacted facilties at this time. will continue to look for placement throughout shift. will update unit when new information has been received. No beds available at following hospitals: Called [facility] and s/w Marnie, No vacancies at this time. Called [facility] and s/w Jorge, No Beds available today. Called [facility] and s[facility]w [facility], No beds available today. Called [facility] and s/w Toña, reviewing charts at this time. Called [facility] and s/w Kelsie, no Beds at this time. Called [facility] and s/w Xavier, No beds available at this time. Called [facility] and s/w Bekah, No vacancies at this time. Called [facility] and s/w Jevon, they have no beds at this time and are still reviewing charts. Called [facility] and s/w Ag they have no beds at this time and are still reviewing charts. Called [facility] and s/w Angie, they have no beds at this time and are still reviewing charts.
--- NOTE | 2018-06-20 15:20 | NUR ---
PATIENT WAS ABLE TO AMBULATE TO THE BATHROOM WITH STEADY GAIT. NO SUICIDAL IDEATION VOICED. NO AGGRESSIVE BEHAVIOR NOTED.
--- NOTE | 2018-06-20 15:20 | NUR ---
Camera Assembler Note: I received a call from patient's sister Marilou Sumner . I obtained the following information from Marilou about patient. Patient lives at home with his parents. Patient refuses to seek mental health services. He refuses to take psychiatric medication. Marilou attempted to become patient's conservator. However, patient passed required psychiatric evaluation ordered by court. Marilou stated patient knows exactly what to say to psychiatrist/psychologist during psych evaluation so he can be cleared. She is aware inpatient psych placement is pending. She is also aware that accepting psychiatric hospital might not be local since beds at psychiatric units are limited. She verbalized understanding and stated she does not mind if patient is transfer to a psychiatric hospital that is far away from patient's home. Advertising Consultant and/or Vehicle Return Associate will follow up as needed.
[2018-06-20 16:00] VITALS: BP 123/76
[2018-06-20] MEDS ORDERED: RIS1 PO (17:34)
--- NOTE | 2018-06-20 18:10 | NUR ---
PATIENT IS RESTING ON BED. DENIED SUICIDAL IDEATION. NO AGGRESSIVE BEHAVIOR NOTED. SAFETY MEASURES IN PLACE. 1:1 SITTER.
--- NOTE | 2018-06-20 19:09 | NUR ---
ENDORSED PATIENT AT BEDSIDE TO [facility] SHIFT NURSE FOR CONTINUITY OF CARE. PATIENT IS IN STABLE CONDITION.
--- NOTE | 2018-06-20 19:09 | NUR ---
RECEIVED REPORT FROM JENIFFER RN DAYSHIFT NURSE AT BEDSIDE FOR CONTINUITY OF CARE, PT IN STABLE CONDITION.
--- NOTE | 2018-06-20 19:45 | NUR ---
PT RESTRAINT ORDERED ENDED AT 2033. PT RESTING IN BED SINCE BEGINNING OF SHIFT NO S/S OF PAIN OR DISTRESS NOTED. RESTRAINTS RELEASED FROM WRIST CAP REFILL LESS THAN 2 SECONDS, SKIN INTACT NO S/S OF INJURY. SPOKE WITH BERNARD AKHTAR RESIDENT MD RESTRAINT ORDER NOT RENEWED AT THIS TIME, WILL MONITOR FOR ANY S/S OF BEHAVIOR. SITTER AT BEDSIDE. V/S FOLLOWS T 98.3 P 90 R 18 B/P 124/74 02 96% ON R/A. PT HAS NO C/O VOICED AT THIS TIME. DRESSING TO LEFT FOOT DRY AND INTACT NO DRAINAGE NOTED.
[2018-06-20 20:00] VITALS: BP 118/68
--- NOTE | 2018-06-20 21:15 | NUR ---
PT GIVEN ORDERED SEROQUEL PO NO BEHAVIOR ISSUES NOTED. SITTER AT BEDSIDE.
[2018-06-20] MEDS: risperiDONE 1 MG TAB PO SCH (21:28)
--- NOTE | 2018-06-20 23:30 | NUR ---
RECEIVED A CALL FROM JAVI AT [facility] REGARDING IF PT HAD BEEN FULLY. JAVI TOLD THAT PT HAS BEEN CLEARED MEDICALLY AND ALSO BY TOP PRECIPITATOR OPERATOR HELPER. PT ONLY WAITING FOR PLACEMENT. JAVI SAID THAT HE WILL CONTINUE TO LOOK FOR FACILITIES FOR PLACEMENT.
--- NOTE | 2018-06-20 23:33 | NUR ---
Spoke with patients ISAIAH Iglesias and patient is medically cleared with potassium clearance and Podiatry consult, will begin looking for psychiatric bed placement with contracted facilities.
--- NOTE | 2018-06-20 23:43 | NUR ---
Called the following contracted psych facilities regarding bed placement. [facility], spoke with Gerardo. No beds available at this time and are not accepting any packets right now. [facility], spoke with Gage. No beds available tonight. [facility], spoke with nursing steam fitter supervisor maintenance Rufino. No beds available tonight in psych. [facility], spoke with Luisa. No beds available tonight but they will accept a packet for review for morning shift. [facility], spoke with Shannon. They can not accommodate any outside patients because they have admissions in there ED they will have to take first. Will update the unit if any new information.
[2018-06-21] VITALS: BP 124/74
--- NOTE | 2018-06-21 00:30 | NUR ---
PT IN BED V/S FOLLOWS T 98.5 P 88 R 18 B/P 118/68 02 97% ON ROOM AIR. NO S/S OF PAIN OR DISTRESS NOTED NO BEHAVIOR ISSUES NOTED. BED LOW AND SITTER AT BEDSIDE.
--- NOTE | 2018-06-21 03:30 | NUR ---
PT IN BED SLEEPING 1/2 NS RUNNING AT 60MLS/HR ORDERED. PT ASLEEP IN LOW BED NO S/S OF PAIN OR DISTRESS NOTED, NO BEHAVIORS NOTED THIS SHIFT. 1:1 SITTER AT BEDSIDE.
--- NOTE | 2018-06-21 07:30 | NUR ---
Received report from pm nurse Kelsie. Pt in bed, awake, calm & quiet, no signs of distress. RAC IV asymptomatic with ongoing 1/2 NS @ 60 ml/hr. Sitter at bedside for continuous monitoring.
[2018-06-21 08:00] VITALS: BP 131/89
[2018-06-21] MEDS: risperiDONE 1 MG TAB PO SCH ×2 (08:39→20:23)
[2018-06-21] MEDS: MULTIVITAMIN 1 TAB PO SCH (08:39)
[2018-06-21 10:00] LABS: BASOPHILS # (AUTO) 0.1 K/uL (0.00-0.22); BASOPHILS % (AUTO) 0.7 % (0.0-2.0); EOSINOPHILS # (AUTO) 0.3 K/uL (0-0.4); HEMATOCRIT 46.6 % (36-52); LYMPHOCYTES # (AUTO) 2.2 K/uL (2.0-11.5); LYMPHOCYTES % (AUTO) 28.4 % (20.5-51.1); MEAN CORPUSCULAR HEMOGLOBIN 32 pg (27-31); MEAN CORPUSCULAR HGB CONC 34 g/dL (33-37); MEAN CORPUSCULAR VOLUME 91.5 fL (80-94); MONOCYTES # (AUTO) 0.6 K/uL (0.8-1.0); MONOCYTES % (AUTO) 7.5 % (1.7-9.3); NEUTROPHILS # (AUTO) 4.5 K/uL (1.8-7.7); NEUTROPHILS % (AUTO) 59.4 % (42.2-75.2); PLATELET COUNT (AUTO) 192 K/uL (140-450); RED BLOOD CELL COUNT(AUTO) 5.09 MIL/uL (4.20-6.10); RED CELL DISTRIBUTION WIDTH 12.8 % (11.6-13.7); WHITE BLOOD COUNT (AUTO) 7.6 K/uL (4.8-10.8)
[2018-06-21 10:09] LABS: ANION GAP 15.4 (8-16); CARBON DIOXIDE 25.7 mmol/L (21-32); CREATININE 0.9 mg/dL (0.7-1.3); POTASSIUM 3.1 mmol/L (3.5-5.1)
--- NOTE | 2018-06-21 11:20 | NUR ---
Dr. Scott at bedside to asses pt.
--- NOTE | 2018-06-21 11:35 | NUR ---
Sister Marilou arrived to visit pt, brought jon dangelo. No strings/pointy items found. Addendum: 06/21/18 at 1200 by Sayra Vaca RN Addendum: Sister sitting at bedside. Pt quietly lying in bed with his face turned away from her. No signs of distress.
--- NOTE | 2018-06-21 11:40 | NUR ---
Sister left room with jon dangelo. Pt remains quietly lying in bed. Sitter remains at bedside.
[2018-06-21] MEDS: KCL 20 MEQ/WATER INJ PREMIX 100 ML IV SCH ×2 (11:47→13:47)
--- NOTE | 2018-06-21 12:54 | NUR ---
Wound tx completed for right foot. Mild malodor present. No c/o pain during tx.
--- NOTE | 2018-06-21 13:50 | NUR ---
Pt's parents arrived to visit pt. Pt resting quietly in bed, interacting appropriately. No signs of distress. Sitter at bedside.
[2018-06-21] MEDS: LORazepam 2 MG/ML VIAL IM/IVP PRN (14:46)
--- NOTE | 2018-06-21 14:46 | NUR ---
Pt's parents had left the room. Pt lying in bed, noticed to be restless & shaking his right leg. Asked pt if he is upset. Pt states he just feels generally anxious about everything all of a sudden. Active listening & reassurance provided. Ativan administered. Sitter at bedside.
--- NOTE | 2018-06-21 15:46 | NUR ---
Ativan reassessment: Pt asleep in bed, respirations even & nonlabored, FLACC 0. No signs of distress. Sitter at bedside.
[2018-06-21 16:00] VITALS: BP 117/75
--- NOTE | 2018-06-21 19:12 | NUR ---
Report given to pm nurse Yoshi. Pt in bed, asleep, respirations even & nonlabored, FLACC 0.
--- NOTE | 2018-06-21 19:13 | NUR ---
RECEIVED PT SLEEPING, OPEN EYES TO NAME, CALM AND QUIET, IVF INFUSING WELL, DRESSING TO RT FOOT DRY AND INTACT, NO SIGNS OF PAIN, PT WENT BACK TO SLEEP, STILL ON 5150 HOLD, SITTER IN PLACE.
--- NOTE | 2018-06-21 19:50 | NUR ---
FAMILY CAME IN TO VISIT, PT ATE DINNER AND CONSUMED 50%, PT INTERACTING WITH FAMILY MEMBERS AND OCCASIONALLY SMILING, AMBULATORY WITH STEADY GAIT, ALL NEEDS ATTENDED.
[2018-06-21] MEDS ORDERED: ZOLPIDEM 5 MG TAB PO SCH (20:30)
--- NOTE | 2018-06-21 21:40 | NUR ---
FAMILY MEMBERS LEFT, PT WENT BACK TO SLEEP MONITORED CLOSELY.
[2018-06-21] MEDS: NACL 0.45% 1,000 ML IV SCH (23:11)
[2018-06-22] VITALS: BP 110/60
--- NOTE | 2018-06-22 | NUR ---
PT SLEEPING, EASILY AROUSABLE, VITAL SIGNS STABLE, DENIES ANY PAIN, IVF INFUSING WELL, CONTINUE TO MONITOR CLOSELY, SITTER AT BEDSIDE.
--- NOTE | 2018-06-22 03:30 | NUR ---
PT SLEEPING, NO SIGNS OF DISTRESS, IVF INFUSING WELL, MONITORED CLOSELY.
--- NOTE | 2018-06-22 06:30 | NUR ---
PT SLEEPING, EASILY AROUSABLE, TOLERABLE PAIN TO RT FOOT, ENCOURAGE TO CALL IF PAIN GET WORST, CALM AND COOPERATIVE AT THIS TIME, MONITORED CLOSELY.
--- NOTE | 2018-06-22 07:16 | NUR ---
PT SLEEPING, NO SIGNS OF DISTRESS, REPORT GIVEN TO RN ISSA FOR CONTINUITY OF CARE
--- NOTE | 2018-06-22 07:17 | NUR ---
Report received from pm nurse Yoshi. Pt resting in bed, awake, no signs of distress. RAC IV asymptomatic with ongoing 1/2 NS @ 60ml/hr. Sitter at bedside.
[2018-06-22 07:31] LABS: BASOPHILS # (AUTO) 0.1 K/uL (0.00-0.22); BASOPHILS % (AUTO) 0.9 % (0.0-2.0); EOSINOPHILS # (AUTO) 0.2 K/uL (0-0.4); EOSINOPHILS % (AUTO) 3.4 % (0.0-4.0); HEMATOCRIT 45.8 % (36-52); HEMOGLOBIN 16.2 g/dL (12.0-18.0); LYMPHOCYTES # (AUTO) 2.3 K/uL (2.0-11.5); LYMPHOCYTES % (AUTO) 33.9 % (20.5-51.1); MEAN CORPUSCULAR HEMOGLOBIN 32 pg (27-31); MEAN CORPUSCULAR HGB CONC 35 g/dL (33-37); MEAN CORPUSCULAR VOLUME 90.1 fL (80-94); MONOCYTES # (AUTO) 0.4 K/uL (0.8-1.0); MONOCYTES % (AUTO) 6.5 % (1.7-9.3); NEUTROPHILS # (AUTO) 3.8 K/uL (1.8-7.7); NEUTROPHILS % (AUTO) 55.3 % (42.2-75.2); PLATELET COUNT (AUTO) 197 K/uL (140-450); RED BLOOD CELL COUNT(AUTO) 5.08 MIL/uL (4.20-6.10); RED CELL DISTRIBUTION WIDTH 12.4 % (11.6-13.7); WHITE BLOOD COUNT (AUTO) 6.8 K/uL (4.8-10.8)
[2018-06-22 08:00] VITALS: BP 132/93
[2018-06-22] MEDS: risperiDONE 1 MG TAB PO SCH ×2 (08:57→20:26)
[2018-06-22] MEDS: MULTIVITAMIN 1 TAB PO SCH (08:57)
[2018-06-22 09:28] LABS: ANION GAP 16.1 (8-16); CARBON DIOXIDE 25.6 mmol/L (21-32); CREATININE 0.8 mg/dL (0.7-1.3); POTASSIUM 3.7 mmol/L (3.5-5.1)
[2018-06-22] MEDS: LORazepam 2 MG/ML VIAL IM/IVP PRN (09:46)
--- NOTE | 2018-06-22 09:46 | NUR ---
Lorazepam admin: Pt c/o feeling generally anxious. Pt states that he used to run around to relieve his anxiety. A few weeks ago, [place] the [place], got lost for 2 days until his family found him. Pt states that is how he got frostbite on his right foot. Pt cont that a group of 60 people from his family came out to find him. Pt able to engage in reminiscence. Validation & reassurance provided. Lorazepam administered.
[2018-06-22 10:21] LABS: MAGNESIUM 1.8 mg/dL (1.8-2.4)
--- NOTE | 2018-06-22 10:46 | NUR ---
Pt quietly resting in bed, awake & verbal. No signs of distress. Respirations even & nonlabored. RAC IV asymptomatic with ongoing 1/2 NS @ 60ml/hr.
--- NOTE | 2018-06-22 11:30 | NUR ---
Pt's parents at bedside to visit. Pt interacting appropriately. Dr. Trejo (psychiatrist) also arrived to assess pt.
--- NOTE | 2018-06-22 13:16 | NUR ---
RT at pt bedside
--- NOTE | 2018-06-22 14:54 | NUR ---
ROUNDED ON PT. PT IN BED SITTING QUIETLY. SITTER AT BEDSIDE. WILL CONTINUE TO MONITOR
[2018-06-22] MEDS: NACL 0.45% 1,000 ML IV SCH (15:05)
--- NOTE | 2018-06-22 15:37 | NUR ---
provided wound care cleansed with NS and provided new dressing. sitter at bedside. will continue to monitor
[2018-06-22 16:00] VITALS: BP 116/70
--- NOTE | 2018-06-22 16:18 | NUR ---
Asked Dr. Yi if ok to dc IVF d/t pt eating/drinking well po. Per physician, ok to dc IVF & keep IV saline locked. Order noted & carried out. IVF of 1/2 NS discontinued, RAC IV intact & patent.
--- NOTE | 2018-06-22 17:15 | NUR ---
Pt's parents arrived to visit pt. Pt interacting appropriately. Sitter at bedside.
--- NOTE | 2018-06-22 17:39 | NUR ---
Received call from [facility] ([facility]) requesting for physician documentation to continue 5150 hold. Doc faxed to number provided by [facility] ([phone]). Per [facility], still awaiting placement to inpatient psych.
--- NOTE | 2018-06-22 17:55 | NUR ---
Pt's parents left unit at this time. Pt lying in bed, calm & quiet, no signs of distress. Sitter at bedside.
--- NOTE | 2018-06-22 19:12 | NUR ---
endorsed pt to plant operator/shift supervisor nurse. pt resting comfortably in bed sitter at bedside. all safety measures in place pt stable
--- NOTE | 2018-06-22 19:14 | NUR ---
RECEIVED PT SLEEPING, OPEN EYES TO NAME, CALM AND QUIET, DRESSING TO RT FOOT DRY AND INTACT, DENIES PAIN, STILL ON 5150 HOLD, SITTER IN PLACE.
--- NOTE | 2018-06-22 20:30 | NUR ---
PT REFUSED DUE MEDICATION STATED "IM OK, I DON'T NEED IT", RISK AND BENEFITS EXPLAINED BUT PT STILL REFUSING, CALM AND COOPERATIVE, PT WENT BACK TO SLEEP, MONITORED CLOSELY, SITTER IN PLACE.
--- NOTE | 2018-06-22 20:52 | NUR ---
Still no beds available at [place] , [facility], and [facility] , will notify Pts nurse if placement is found.
--- NOTE | 2018-06-22 22:20 | NUR ---
FAMILY MEMBER VISITING, PT INTERACTING APPROPRIATELY, CALM AND COOPERATIVE, MONITORED CLOSELY, SITTER IN PLACE.
[2018-06-23] VITALS: BP 126/67
[2018-06-23] MEDS: LORazepam 2 MG/ML VIAL IM/IVP PRN ×2 (01:02→09:54)
--- NOTE | 2018-06-23 01:06 | NUR ---
PT AWAKE, ANXIOUS AND CANT GO BACK TO SLEEP, STATED TOO MAY THINGS GOING THROUGH MY MIND, MEDICATED PRN WITH ATIVAN, MONITORED CLOSELY, SITTER IN PLACE.
[2018-06-23] MEDS ORDERED: ZOLPIDEM 5 MG TAB ONE (02:15)
--- NOTE | 2018-06-23 02:17 | NUR ---
PT STILL AWAKE, PACING INSIDE THE ROOM, ANXIOUS AND REQUESTING FOR ATIVAN, MADE AWARE THAT IT IS STILL TOO EARLY FOR ANOTHER DOSE, OFFERED AMBIEN AND PT AMENABLE, AMBIEN PO GIVEN, PT WENT BACK TO BED, MONITORED CLOSELY.
--- NOTE | 2018-06-23 03:50 | NUR ---
PT SLEEPING, NO SIGNS OF DISTRESS, MONITORED CLOSELY, SITTER IN PLACE.
--- NOTE | 2018-06-23 07:10 | NUR ---
PT AWAKE, NO SIGNS OF DISTRESS, REPORT GIVEN TO ISAIAH WREN FOR CONTINUITY OF CARE.
--- NOTE | 2018-06-23 07:15 | NUR ---
RECEIVED PT FROM BACK WINDER NURSECHINEDU, PT IS AWAKE AND LYING ON THE BED, ON A 5150 HOLD 1:1 SITTER ON THE BEDSIDE PT HAS AN IV LINE ON THE RT AC G. 20 ON SALINE LOCK, PT DENIES PAIN AND NO SIGN OF DISTRESS NOTED.
[2018-06-23 07:36] LABS: BASOPHILS # (AUTO) 0.1 K/uL (0.00-0.22); BASOPHILS % (AUTO) 0.8 % (0.0-2.0); EOSINOPHILS # (AUTO) 0.1 K/uL (0-0.4); EOSINOPHILS % (AUTO) 1.3 % (0.0-4.0); HEMATOCRIT 45.4 % (36-52); LYMPHOCYTES # (AUTO) 2.4 K/uL (2.0-11.5); MEAN CORPUSCULAR HEMOGLOBIN 32 pg (27-31); MEAN CORPUSCULAR HGB CONC 35 g/dL (33-37); MEAN CORPUSCULAR VOLUME 90.2 fL (80-94); MONOCYTES # (AUTO) 0.5 K/uL (0.8-1.0); MONOCYTES % (AUTO) 6.5 % (1.7-9.3); NEUTROPHILS % (AUTO) 57.4 % (42.2-75.2); PLATELET COUNT (AUTO) 219 K/uL (140-450); RED BLOOD CELL COUNT(AUTO) 5.03 MIL/uL (4.20-6.10); RED CELL DISTRIBUTION WIDTH 12.5 % (11.6-13.7)
[2018-06-23 07:56] LABS: ANION GAP 12.4 (8-16); CARBON DIOXIDE 29.6 mmol/L (21-32); CREATININE 0.8 mg/dL (0.7-1.3)
[2018-06-23 08:00] VITALS: BP 118/61
--- NOTE | 2018-06-23 08:30 | NUR ---
PT IS AWAKE AND SEATED ON THE BED,1:1 SITTER ON THE BEDSIDE, VITAL SIGNS TAKEN AND IS WITHIN NORMAL LIMIT. NO SIGN OF DISTRESS NOTED AND WILL MONITOR PT.
[2018-06-23 08:46] LABS: PHOSPHORUS 4.2 mg/dL (2.5-4.9)
[2018-06-23] MEDS: risperiDONE 1 MG TAB PO SCH ×2 (09:53→20:34)
[2018-06-23] MEDS: MULTIVITAMIN 1 TAB PO SCH (09:54)
--- NOTE | 2018-06-23 10:02 | NUR ---
PT IS AWAKE AND SEATED ON THE BED, VERBALIZED A FEELING OF ANXIETY AND ASKED FOR AN ATIVAN, VITAL SIGNS CHECKED AND BP IS 122/83, PULSE IS 84, O2 SATURATION IS 100% AND RESPIRATION IS 18/MIN, ORAL AND IV MEDICATIONS WERE GIVEN AND PT TOLERATED IT. NO SIGN OF DISTRESS NOTED
--- NOTE | 2018-06-23 12:30 | NUR ---
PT IS EATING HIS LUNCH QUIETLY NOW.
--- NOTE | 2018-06-23 14:00 | NUR ---
PT IS LYING ON THE BED AND SLEEPING NOW.
[2018-06-23 16:00] VITALS: BP 110/62
--- NOTE | 2018-06-23 16:00 | NUR ---
PT IS AWAKE WITH PARENTS AND1:1 SITTER ON THE BEDSIDE,WOUND ON THE DORSAL SIDE OF THE RT FOOT WAS CLEANED AND REINFORCED WITH XEROFORM DRESSING AND CLING WRAP, VITAL SIGNS TAKEN AND IS WITHIN NORMAL LIMIT. NO SIGN OF DISTRESS NOTED AND WILL MONITOR PT.
--- NOTE | 2018-06-23 18:00 | NUR ---
PT IS EATING HIS DINNER WITH FAMILY ON THE BEDSIDE, 1:1 SITTER ON THE BEDSIDE WELL.
--- NOTE | 2018-06-23 18:28 | NUR ---
DR. DONOVAN CAME FOR ROUNDS. PT CALM AND ABLE TO ANSWER . QUESTIONS. ABLE TO UNDERSTAND DR'S EXPLANATION.
--- NOTE | 2018-06-23 19:20 | NUR ---
ENDORSED PT [facility] SHIFT NURSESONAM FOR CONTINUITY OF CARE, 1:1 SITTER ON THE BEDSIDE, PT IS STABLE AT THIS TIME.
--- NOTE | 2018-06-23 19:21 | NUR ---
RECEIVED AM SHIFT NURSE,SIENA. PT IS AWAKE AND LYING ON THE BED, ON A 5150 HOLD 1:1 SITTER ON THE BEDSIDE PT HAS AN IV LINE ON THE RT AC G. 20 ON SALINE LOCK, PT DENIES PAIN AND NO SIGN OF DISTRESS NOTED.
--- NOTE | 2018-06-23 19:22 | NUR ---
FAMILY MEMBER VISITING, PT INTERACTING APPROPRIATELY, CALM AND COOPERATIVE, MONITORED CLOSELY
--- NOTE | 2018-06-23 20:57 | NUR ---
[facility] WAS HERE AND INTERVIEWED PATIENT
--- NOTE | 2018-06-23 20:57 | NUR ---
At this time there are no vacancy , at any of the following facilities, will notify charge floor nurse if placement is found.
--- NOTE | 2018-06-23 21:10 | NUR ---
DR JESSICA GAVE NEW ORDER FOR TRAZADONE. WILL CARRY OUT NEW ORDER
[2018-06-23] MEDS: traZODone 50 MG TAB PO SCH (21:50)
[2018-06-24] VITALS: BP 108/71
--- NOTE | 2018-06-24 00:02 | NUR ---
PT SLEEPING COMFORTABLY, NO SIGNS OF DISTRESS, NO SIGNS OF PAIN
[2018-06-24 05:12] VITALS: BP 110/80
--- NOTE | 2018-06-24 05:28 | NUR ---
PT'S IV DUE FOR AN IV SITE CHANGE. TAKEN OUT CANNULA INTACT. WILL START A LINE AT ANOTHER SITE
--- NOTE | 2018-06-24 06:19 | NUR ---
PT, SITTING IN BED, AWAKE ALERT IN STABLE CONDITION, FOR CONTINUITY OF CARE OF NEXT SHIFT NURSE.
[2018-06-24 06:31] LABS: BASOPHILS % (AUTO) 0.4 % (0.0-2.0); EOSINOPHILS # (AUTO) 0.1 K/uL (0-0.4); EOSINOPHILS % (AUTO) 2.1 % (0.0-4.0); HEMATOCRIT 46.2 % (36-52); HEMOGLOBIN 16.1 g/dL (12.0-18.0); LYMPHOCYTES # (AUTO) 2.4 K/uL (2.0-11.5); LYMPHOCYTES % (AUTO) 35.6 % (20.5-51.1); MEAN CORPUSCULAR HEMOGLOBIN 32 pg (27-31); MEAN CORPUSCULAR HGB CONC 35 g/dL (33-37); MEAN CORPUSCULAR VOLUME 90.5 fL (80-94); MONOCYTES # (AUTO) 0.5 K/uL (0.8-1.0); MONOCYTES % (AUTO) 7.1 % (1.7-9.3); NEUTROPHILS # (AUTO) 3.7 K/uL (1.8-7.7); NEUTROPHILS % (AUTO) 54.8 % (42.2-75.2); PLATELET COUNT (AUTO) 219 K/uL (140-450); RED CELL DISTRIBUTION WIDTH 12.6 % (11.6-13.7); WHITE BLOOD COUNT (AUTO) 6.8 K/uL (4.8-10.8)
[2018-06-24 06:53] LABS: CARBON DIOXIDE 30.9 mmol/L (21-32); CREATININE 0.9 mg/dL (0.7-1.3); POTASSIUM 3.9 mmol/L (3.5-5.1)
--- NOTE | 2018-06-24 07:22 | NUR ---
REFUSED IV INSERTION. WILL INFORM AM SHIFT NURSE
--- NOTE | 2018-06-24 07:28 | NUR ---
RECEIVED PT FROM MECHANICAL INSPECTOR NURSESONAM, PT IS AWAKE AND IS LYING ON THE BED, QUIET, !;1 SITTER ON THE BEDSIDE, PT HAS NO IV ACCESS NOTED AND PT IS REFUSING TO HAVE A RE-INSERTION, PT DENIES PAIN AND NO SIGN OF ANXIETY NOTED. WILL MONITOR PT.
[2018-06-24 08:00] VITALS: BP 117/73
--- NOTE | 2018-06-24 08:05 | NUR ---
PT IS AWAKE AND LYING ON THE BED WITH SIDE RAILS UP, VITAL SIGNS CHECKED AND BP IS 117/73, PULSE IS 74, TEMPERATURE IS 97.7, O2 SATURATION IS 99% AND RESPIRATION IS 16/MIN, NO SIGN OF DISTRESS NOTED, 1;1 SITTER ON BEDSIDE AND WILL MONITOR PT.
[2018-06-24] MEDS: MULTIVITAMIN 1 TAB PO SCH (08:28)
[2018-06-24] MEDS: ESCITALOPRAM 20 MG TAB PO SCH (08:28)
[2018-06-24] MEDS: risperiDONE 1 MG TAB PO SCH ×2 (08:28→21:00)
--- NOTE | 2018-06-24 08:28 | NUR ---
PT IS AWAKE AND VITAL SIGNS CHECKED AND WITHIN NORMAL LIMIT, PT REFUSED TO TAKE THE AN-DEPRESSANT MEDICATIONS AND ONLY AGREED TO TAKE THE MULTIVITAMINS, WILL INFORM MD.
--- NOTE | 2018-06-24 10:12 | NUR ---
Principal Biostatistician Note: Valentino Moore from [facility] ([place]) , they do not have any beds available at this time. She stated referral is still pending to be clinically reviewed.
--- NOTE | 2018-06-24 10:15 | NUR ---
INFORMED DR. BANKS THAT PT REFUSED TO TAKE THE LEXAPRO AND RISPERDAL MEDICATIONS AND PT VERBALIZED THAT HE DOES NOT NEED THE MEDICATIONS. ACKNOWLEDGED AND SAID THAT HE WILL SEE PT.
--- NOTE | 2018-06-24 10:35 | NUR ---
Contacted the following facilities regarding placement: [facility], [facility], [facility]. No beds available and no eta.
--- NOTE | 2018-06-24 12:30 | NUR ---
PT IS AWAKE AND LYING ON THE BED WITH MOTHER ON THE BEDSIDE, PT IS TALKING APPROPRIATELY.
--- NOTE | 2018-06-24 14:40 | NUR ---
PT IS SLEEPING NOW
[2018-06-24 16:00] VITALS: BP 120/73
--- NOTE | 2018-06-24 16:35 | NUR ---
PT IS AWAKE AND WAS ASSISTED TO DO A SPONGE BATH AND BED LINENS WERE CHANGED.
--- NOTE | 2018-06-24 18:29 | NUR ---
PT IS TALKING APPROPRIATELY WITH THE FAMILY NOW.
--- NOTE | 2018-06-24 19:30 | NUR ---
ENDORSED PT TO TOYS AND GAMES HAND FINISHER NURSECHERRIE, FOR CONTINUITY OF CARE, PT IS STABLE AT THIS TIME WITH FAMILY ON THE BEDSIDE.
--- NOTE | 2018-06-24 19:31 | NUR ---
RECEIVED REPORT FROM DAY SHIFT ISAIAH WREN FOR CONTINUITY OF CARE. PT IS A/OX4, ON ROOM AIR. PT ABLE TO MAKE NEEDS KNOWN, AND ABLE TO FOLLOW COMMANDS. PT AMBULATES WITH STEADY GAIT, AND SKIN IS INTACT. PT HAS 20G IV TO RIGHT AC, ASYMPTOMATIC AND INTACT. DISCUSSED PLAN OF CARE WITH PT, PT VERBALIZED UNDERSTANDING. VITAL SIGNS WITHIN NORMAL LIMITS. PT STABLE, DENIES PAIN, NO SIGNS OF DISTRESS NOTED AT THIS TIME. PT POSITIONED FOR COMFORT. BED IN LOWEST POSITION, BED ALARM ON. WILL CONTINUE TO MONITOR. Addendum: 06/24/18 at 2044 by Camille Mckoy RN PLEASE DISREGARD, WRONG INFORMATION.
--- NOTE | 2018-06-24 19:32 | NUR ---
RECEIVED REPORT FROM DAY SHIFT RN SIENA FOR CONTINUITY OF CARE. PT IS A/OX4, ON ROOM AIR. PT ABLE TO MAKE NEEDS KNOWN, AND ABLE TO FOLLOW COMMANDS. PT AMBULATES WITH STEADY GAIT. RIGHT BIG TOE FROSTBITE, OTHERWISE SKIN IS INTACT. PT DOES NOT HAVE IV ACCESS. DISCUSSED PLAN OF CARE WITH PT, PT VERBALIZED UNDERSTANDING. VITAL SIGNS WITHIN NORMAL LIMITS. PT STABLE, DENIES PAIN, NO SIGNS OF DISTRESS NOTED AT THIS TIME. PT POSITIONED FOR COMFORT. BED IN LOWEST POSITION, BED ALARM ON. WILL CONTINUE TO MONITOR.
[2018-06-24] MEDS: traZODone 50 MG TAB PO SCH (21:00)
--- NOTE | 2018-06-24 21:12 | NUR ---
PT REFUSED TO TAKE MEDICATIONS, EXPLAINED TO HIM THE PURPOSE OF THESE SPECIFIC MEDICATIONS IS TO TREAT SCHIZOPHRENIA AND DEPRESSION. PT LAUGHED AND SAID "THAT'S WHAT I'M BEING TREATED FOR? NOT THANK YOU."
--- NOTE | 2018-06-24 21:34 | NUR ---
Still no placement available at any of the designated facilities , will notify charge nurse if placement is found.
--- NOTE | 2018-06-24 21:38 | NUR ---
DR. WAGNER TALKING TO PT REGARDING MEDICATIONS.
[2018-06-25] VITALS: BP 120/59
--- NOTE | 2018-06-25 | NUR ---
VITAL SIGNS WITHIN NORMAL LIMITS. PT STABLE, DENIES PAIN, NO SIGNS OF DISTRESS NOTED AT THIS TIME. PT POSITIONED HIMSELF FOR COMFORT. BED IN LOWEST POSITION, BED ALARM ON. WILL CONTINUE TO MONITOR.
--- NOTE | 2018-06-25 02:33 | NUR ---
PT STABLE, DENIES PAIN, NO SIGNS OF DISTRESS NOTED AT THIS TIME. PT POSITIONED FOR COMFORT. BED IN LOWEST POSITION, BED ALARM ON. WILL CONTINUE TO MONITOR.
--- NOTE | 2018-06-25 04:18 | NUR ---
PT STABLE, NO SIGNS OF DISTRESS NOTED AT THIS TIME. BED IN LOWEST POSITION, BED ALARM ON. WILL CONTINUE TO MONITOR.
--- NOTE | 2018-06-25 06:38 | NUR ---
PT AWAKE NOW BUT STILL RESTING. NO SIGNS OF DISTRESS NOTED AT THIS TIME.BED IN LOWEST POSITION, BED ALARM ON. WILL CONTINUE TO MONITOR.
--- NOTE | 2018-06-25 07:10 | NUR ---
RECEIVED PT REPORT FROM TECHNICAL AID RN AT BEDSIDE. PT IS AAOX4, NO S/S OF DISTRESS ON ROOM AIR. PT ABLE TO MAKE NEEDS KNOWN, AND ABLE TO FOLLOW COMMANDS. RIGHT FOOT DRESSING CLEAN, INTACT AND DRY. NO IV ACCESS. PT REFUSED IV INSERT. DISCUSSED PLAN OF CARE WITH PT, PT VERBALIZED UNDERSTANDING. BED IN LOWEST POSITION, BED ALARM ON. SITTER IN PLACE FOR CONTINUOUS MONITORING.
[2018-06-25 08:00] VITALS: BP 110/79
[2018-06-25] MEDS: MULTIVITAMIN 1 TAB PO SCH (08:51)
[2018-06-25] MEDS: ESCITALOPRAM 20 MG TAB PO SCH (08:51)
[2018-06-25] MEDS: risperiDONE 1 MG TAB PO SCH ×2 (08:52→21:00)
--- NOTE | 2018-06-25 09:15 | NUR ---
PT TOOK MULTI-VITAMIN, BUT REFUSED PSYCH MEDICATIONS. EXPLAINED THE PURPOSE OF EACH MEDICATION WITH RISK AND BENEFITS. PT STILL REFUSING, STATED THAT I DON'T WANT ANY MEDICATIONS CHANGE MY MOOD.
--- NOTE | 2018-06-25 10:44 | NUR ---
CM NOTE PER [facility]OM[facility] OF [facility], NO BEDS AVAILABLE AT THIS TIME. PER MISHEL OF [facility], NO BEDS AVAILABLE AT THIS TIME. PER ALBIN OF [facility], NO BEDS AVAILABLE AT THIS TIME BUT THEY ARE ANTICIPATING POSSIBLE DISCHARGES THIS AFTERNOON. I GAVE HER THE NUMBER TO THE NURSING STATION WHERE PATIENT IS IN CASE A BED BECOMES AVAILABLE AT A LATER TIME. PER JEZ OF [facility], NO BEDS AVAILABLE AT THIS TIME BUT THEY ARE ANTICIPATING POSSIBLE DISCHARGES THIS AFTERNOON. I GAVE HER THE NUMBER TO THE NURSING STATION WHERE PATIENT IS IN CASE A BED BECOMES AVAILABLE AT A LATER TIME. PER HERMELINDA OF [facility], NO BEDS AVAILABLE AT THIS TIME BUT THEY ARE ANTICIPATING POSSIBLE DISCHARGES TODAY. I GAVE HIM THE NUMBER TO THE NURSING STATION WHERE PATIENT IS IN CASE A BED BECOMES AVAILABLE AT A LATER TIME.
[2018-06-25] MEDS ORDERED: ESCI20TA47 PO (12:07)
[2018-06-25] MEDS ORDERED: TRAZ-466 PO (12:07)
[2018-06-25 16:00] VITALS: BP 121/79
--- NOTE | 2018-06-25 19:29 | NUR ---
ENDORSED PT TO PRECISION LATHE OPERATOR NURSE FOR CONTINUITY OF CARE, PT IS STABLE AT THIS TIME WITH FAMILY ON THE BEDSIDE.
--- NOTE | 2018-06-25 19:30 | NUR ---
Patient's Plan of Care was discussed and reviewed with INSURANCE BROKER: KIP. PT IN STABLE CONDITION. WILL CONTINUE TO MONITOR.
--- NOTE | 2018-06-25 19:30 | NUR ---
RECD REPORT FROM AM NURSE. NOTED PATIENT FAMILY IS LEAVING. A/OX4. RESPIRATION EVEN AND UNLABORED. PLAN OF CARE FOR THE SHIFT DISCUSSED. VERBALIZED UNDERSTANDING. STATED HE HAS NO SUICIDAL THOUGHTS AT THIS TIME. DENIES PAIN 0/10.
--- NOTE | 2018-06-25 19:35 | NUR ---
FEELING BORED, QUESTIONS WHY THERE IS NO TV INSIDE THE ROOM, EXPLAINED IT'S THE PROTOCOL. MAGAZINES GIVEN. STAYED IN BED AND READ.
--- NOTE | 2018-06-25 20:25 | NUR ---
DONE WITH READING, MAGAZINES GIVEN BACK. SITS ON THE BED. INFORMED MD ORDERED MEDICATIONS FOR HIM TO TAKE AT NIGHT. STATED "I NEVER TAKE MEDICATIONS". REFUSED TO TAKE HIS NIGHT MEDS. EXPLAINED IT'S IMPORTANCE, STILL REFUSED.
--- NOTE | 2018-06-25 20:37 | NUR ---
5150 06/25/18 12PM. Pending new 5150 to continue looking for psychiatric bed placement. I spoke with patient nurse and she will update MD and renal social worker.
--- NOTE | 2018-06-25 20:42 | NUR ---
Spoke with patient nurse and a new 5150 has been written. RN will fax me the hold and will continue calling for bed placement.
[2018-06-25] MEDS: traZODone 50 MG TAB PO SCH (21:00)
--- NOTE | 2018-06-25 22:49 | NUR ---
Called the following contracted psych facilities for bed placement. [facility], spoke with Eric the nursing billing supervisor. Currently no beds available in his unit tonight. [facility], spoke with Patito with intake. No beds available tonight, requested for the Call Center to call back tomorrow morning after 10AM to see if they have any discharges pending. Sussy Iglesias [facility], spoke with Idania with intake. No beds available for tonight. [facility], spoke with Shannon with intake. No beds available in the psych unit tonight. [facility], spoke with Gerardo. No beds available tonight. [facility], spoke with Gage. Unit is at full capacity. Call Center will notify the unit when a bed becomes available.
--- NOTE | 2018-06-25 23:00 | NUR ---
SLEEPING COMFORTABLY IN BED.
[2018-06-26] VITALS: BP 101/69
--- NOTE | 2018-06-26 | NUR ---
NO COMPLAINT OF PAIN 0/10. VS STABLE.
--- NOTE | 2018-06-26 02:00 | NUR ---
STILL SLEEPING, NO UNUSUAL BEHAVIOR NOTED.
--- NOTE | 2018-06-26 04:00 | NUR ---
STILL SLEEPING COMFORTABLY IN BED.
--- NOTE | 2018-06-26 07:05 | NUR ---
ABLE TO SLEEP WELL. CONDITION REMAIN STABLE. NO SUICIDAL IDEATION NOTED DURING SHIFT. ENDORSED TO AM SHIFT NURSE FOR CONTINUITY OF CARE.
--- NOTE | 2018-06-26 07:06 | NUR ---
SBAR REPORT RECEIVED FROM PM NURSE AT PT BEDSIDE. PATIENT SEEN RESTING IN BED, AWAKE AND ALERT. DENIES PAIN. PATIENT DENIES SUICIDAL IDEATION AT THIS TIME. DENIES HEARING VOICES. PATIENT CONTINUED ON 1:1 SAFETY MONITORING FOR SUICIDAL IDEATION. SAFETY MEASURES ENSURED. RIGHT FOOT WOUND DRESSING C/D/I. SPOKE WITH PATIENT REGARDING POST OP SHOE, CONTINUES TO REFUSE. PATIENT IN AGREEMENT WITH TRANSFER TO INPATIENT PSYCH FACILITY, AWAITING BED PLACEMENT. NO ACUTE DISTRESS NOTED.
[2018-06-26 08:00] VITALS: BP 122/71
[2018-06-26] MEDS: MULTIVITAMIN 1 TAB PO SCH (08:14)
[2018-06-26] MEDS: ESCITALOPRAM 20 MG TAB PO SCH (08:14)
[2018-06-26] MEDS: risperiDONE 1 MG TAB PO SCH ×2 (08:14→21:00)
--- NOTE | 2018-06-26 08:15 | NUR ---
PATIENT SEEN BY DR. CANSECO AT BEDSIDE. MD SPOKE WITH PATIENT REGARDING CURRENT PLAN OF CARE. PATIENT RESTING IN BED. CONTINUES TO REFUSE SCHEDULED MEDS.
--- NOTE | 2018-06-26 10:29 | NUR ---
SBAR REPORT GIVEN TO DAY RN AT PT BEDSIDE. PATIENT RESTING IN BED, NO ACUTE DISTRESS NOTED.
--- NOTE | 2018-06-26 10:30 | NUR ---
RECEIVED REPORT FROM ISAIAH DIEGO . PT DX SUICIDAL IDEATION 5150 HOLD. IS WITH 1:1 SITTER. PER RN , PT REFUSED ALL HIS PO MEDS, STATES DOES NOT TRUST THE OPEN PACKS OR FOODS OR ANYTHING. TALKED TO PT , STATES HE HAS NO SUICIDAL THOUGHTS AT THIS TIME. FAMILY AT THE BEDSIDE. PT WITH 1:1 SITTER. NO SIGN OFM DISTRESS NOTED AT THIS TIME. WILL CONTINUE TO MONITOR PT.
--- NOTE | 2018-06-26 15:01 | NUR ---
06/26/18 RD INITIAL ASSESSMENT COMPLETED PLEASE REFER TO NUTRITION ASSESSMENT UNDER CARE ACTIVITY FOR ESTIMATED NUTRITIONAL NEEDS. 1. CONTINUE REGULAR DIET TOLERATED 2. RD TO FOLLOW-UP 5-7 DAYS, LOW RISK FESTUS ST RD
--- NOTE | 2018-06-26 15:28 | NUR ---
CHECKED ON PT. SITTING ON HIS BED. PT WITH 1;1 SITTER. NO SIGN OF DISTRESS NOTED. WILL CONTINUE TO MONITOR PT.
[2018-06-26 16:00] VITALS: BP 100/60
--- NOTE | 2018-06-26 18:12 | NUR ---
CHECKED WITH PT. IN ROOM READING MAGAZINE. PT VISITED BY FAMILY MEMBERS. NO BEHAVIORAL DISTRESS NOTED. WILL CONTINUE TO MONITOR PT.
--- NOTE | 2018-06-26 19:05 | NUR ---
ENDORSED PT TO PM NURSE AT BEDSIDE. PT IN STABLE CONDITION.
--- NOTE | 2018-06-26 19:06 | NUR ---
RECEIVED REPORT FROM DAY SHIFT NURSE. PT LYING IN BED, READING A BIBLE. PT DENIES SUICIDAL IDEATION AT THIS TIME. DENIES PAIN OR SOB. SITTER 1:1
--- NOTE | 2018-06-26 19:35 | NUR ---
PT SITTING ON BED STATED "I WANT TO TALK TO MY PSYCHIATRIST RIGHT NOW". DR. WAGNER MADE AWARE AND SPOKE WITH THE PT. PT TALKING APPROPRIATELY TO DR. WAGNER.
--- NOTE | 2018-06-26 20:00 | NUR ---
PT'S SISTER VISITING. PT TALKING CALMLY TO HIS SISTER. 1:[address].
--- NOTE | 2018-06-26 20:40 | NUR ---
PT REFUSED DUE MEDS. PT STATED "NO, THANK YOU". EXPLAINED TO PT THE RISK AND BENEFITS, PT VERBALIZED UNDERSTANDING BUT STILL REFUSED. PT TALKING AND LAUGHING WITH SISTER AT BEDSIDE.
[2018-06-26] MEDS: traZODone 50 MG TAB PO SCH (21:00)
[2018-06-26 21:04] VITALS: BP 100/60
--- NOTE | 2018-06-26 21:10 | NUR ---
RECEIVED A CALL FROM IGO FROM [facility] AND ASKED FOR REPORT H&P, LABS, MEDS. PER GIO THEY CAN ACCEPT THE PT TO THEIR FACILITY [facility] UNDER DR. IGLESIAS. PER GIO, THEY WILL ASSIGN A ROOM FOR PT WHEN HE GETS TO THE FACILITY. PER GIO, THEY WILL SET UP TRANSPORTATION AND WILL CALL US FOR SLEEPING BAG FILLER TIME. DR. WAGNER MADE AWARE. PT AND PT'S SISTER SHARLA AT BEDSIDE, MADE AWARE.
--- NOTE | 2018-06-26 22:15 | NUR ---
RECEIVED A CALL FROM [facility] ([place], [place]). PER SARAH, WE SHOULD BE THE ONE TO SET UP A TRANSPORTATION FOR THE TRANSFER. HOUSE SUP, CHARGE NURSE AND MAKE UP ARTIST/SUPERINTENDENT CAR CONSTRUCTION MADE AWARE.
--- NOTE | 2018-06-26 22:20 | NUR ---
PT REFUSED TO TAKE PICTURE OF HIS RIGHT TOE WOUND.
--- NOTE | 2018-06-26 22:30 | NUR ---
LUBRICATION SUPERVISOR/MACARONI MAKER CALLED [facility] FOR BLS TRANSPORT. ETA 2315 HRS. PT AND PT'S SISTER MADE AWARE. DR. WAGNER AND DIAGNOSTIC TECHNICIAN MADE AWARE.
[2018-06-26 23:00] VITALS: BP 116/78
--- NOTE | 2018-06-26 23:25 | NUR ---
[facility] HERE TO TAPPER BALANCE WHEEL SCREW HOLE PT. DC/TRANSFER PACKET GIVEN TO EMT. DC/TRANSFER PAPERS SIGNED BY PT. PERSONAL BELONGINGS GIVEN TO PT. PT LEFT VIA GURNEY IN STABLE CONDITION
== END 2018-06-26 23:25 | disposition short-term general hospital (02) | DRG 812 ==
LOC: MED 14:30 → MTU 14:54 → MED 15:32
PROVIDERS: ADMIT General Practice; ATTEND General Practice
DX: T45.0X2A Poisoning by antiallergic and antiemetic drugs, intentional self-harm, initial encounter (principal); G92 Toxic encephalopathy; E87.3 Alkalosis; E87.6 Hypokalemia; F32.9 Major depressive disorder, single episode, unspecified; L98.8 Other specified disorders of the skin and subcutaneous tissue; L97.519 Non-pressure chronic ulcer of other part of right foot with unspecified severity; F19.10 Other psychoactive substance abuse, uncomplicated; F20.9 Schizophrenia, unspecified; Z56.0 Unemployment, unspecified; Z91.19 Patient's noncompliance with other medical treatment and regimen; Y92.89 Other specified places as the place of occurrence of the external cause; Z91.5 Personal history of self-harm
CPT/HCPCS: 36415; 70450; 71045; 73620; 80048; 83036; 83690; 83735; 83880; 84100; 84443; 85025; 85610; 85730; 87081; 93005; 99285; G0482; J2060; J3480; J7030; Q0092

== ENCOUNTER 2018-07-22 16:30 | Emergency (ER) | payer MEDICAID ==
[~2018-07-22] VITALS: Ht 185.4 cm; Wt 93.0 kg
[~2018-07-22 16:30] MED LIST changes: +ESCI20TA47 PO; -HYDR-5123 PO; -LACT10CA1 PO; -LEVO750T2 PO; +RIS1 PO; -SULF-59 PO; +TRAZ-466 PO
[2018-07-22 16:44] VITALS: BP 129/69
--- NOTE | 2018-07-22 16:51 | NUR ---
PATIENT AMBULATED TO BED #12
--- NOTE | 2018-07-22 16:56 | NUR ---
patient stated he is not taking any meds. at this time/stopped taking them
[2018-07-22] MEDS ORDERED: LIDOCAINE 1% 500 MG/50 ML VIAL INJ SCH (17:15)
--- NOTE | 2018-07-22 17:32 | NUR ---
NO N/V. AWAITING DISPOSTION.
--- NOTE | 2018-07-22 17:33 | NUR ---
I&D SET UP AND LIDOCAINE HANDED TO PROVIDER. PROVIDER AT BEDSIDE FOR I&D.
[2018-07-22] MEDS ORDERED: LIDOCAINE MPF 1% 5mL VIAL ONE (17:37)
[2018-07-22 18:32] VITALS: BP 122/75
--- NOTE | 2018-07-22 18:33 | NUR ---
Patient discharged with v/s stable. Written and verbal after care instructions given and explained. Patient alert, oriented and verbalized understanding of instructions. Ambulatory with steady gait. All questions addressed prior to discharge. ID band removed. Patient advised to follow up with PMD. Rx of CEPHALEXIN 500 MG CAPSULE, NAPROSYN 375MG TABLET given. Patient educated on indication of medication including possible reaction and side effects. Opportunity to ask questions provided and answered.
== END 2018-07-22 18:33 | disposition home or self-care (01) ==
LOC: MED 16:30
DX: L02.811 Cutaneous abscess of head [any part, except face] (principal)
CPT/HCPCS: 10060; 99283; J2001

== ENCOUNTER 2018-11-18 00:53 | Emergency (ER) | payer MEDICAID ==
[~2018-11-18] VITALS: Ht 185.4 cm; Wt 104.3 kg
[2018-11-18 00:58] VITALS: BP 142/77
--- NOTE | 2018-11-18 01:00 | NUR ---
PT AMBULATED TO BED 1.
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
[2018-11-18] MEDS ORDERED: LIDOCAINE MPF 1% - 5 mL VIAL 0 ML ONE (01:44)
--- NOTE | 2018-11-18 02:13 | NUR ---
DR. NORIEGA AT BEDSIDE PERFORMING I & D
[2018-11-18] MEDS: LIDOCAINE 1% 500 MG/50 ML VIAL INJ SCH (02:19)
[2018-11-18 02:23] VITALS: BP 142/77
--- NOTE | 2018-11-18 02:23 | NUR ---
Patient discharged with v/s stable. Written and verbal after care instructions given and explained. Patient verbalized understanding. Ambulatory with steady gait. All questions addressed prior to discharge. Advised to follow up with PMD.
== END 2018-11-18 02:23 | disposition home or self-care (01) ==
LOC: MED 00:53
DX: L72.3 Sebaceous cyst (principal)
CPT/HCPCS: 99283; J2001

== ENCOUNTER 2019-05-24 01:17 | Emergency (ER) | payer MEDICAID ==
[~2019-05-24] VITALS: Ht 185.4 cm; Wt 116.1 kg
[2019-05-24 01:20] VITALS: BP 151/90
--- NOTE | 2019-05-24 01:20 | NUR ---
to bed # 03 ambulatory
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
[2019-05-24] MEDS ORDERED: FAMOTIDINE 20 MG TAB PO ONE (02:35)
[2019-05-24 04:26] VITALS: BP 148/84
== END 2019-05-24 04:27 | disposition home or self-care (01) ==
LOC: MED 01:17
DX: J06.9 Acute upper respiratory infection, unspecified (principal)
CPT/HCPCS: 71046; 99283

== ENCOUNTER 2019-07-07 14:56 | Emergency (ER) | payer MEDICAID, OTHER ==
[~2019-07-07] VITALS: Ht 175.3 cm; Wt 108.9 kg
[2019-07-07 15:14] VITALS: BP 140/93
[2019-07-07 16:29] LABS: BASOPHILS % (AUTO) 0.3 % (0.0-2.0); EOSINOPHILS % (AUTO) 0.1 % (0.0-4.0); HEMATOCRIT 51.7 % (36-52); HEMOGLOBIN 17.8 g/dL (12.0-18.0); LYMPHOCYTES # (AUTO) 1.1 K/uL (2.0-11.5); LYMPHOCYTES % (AUTO) 6.9 % (20.5-51.1); MEAN CORPUSCULAR HEMOGLOBIN 32 pg (27-31); MEAN CORPUSCULAR HGB CONC 35 g/dL (33-37); MEAN CORPUSCULAR VOLUME 93.3 fL (80-94); MONOCYTES # (AUTO) 0.9 K/uL (0.8-1.0); MONOCYTES % (AUTO) 5.5 % (1.7-9.3); NEUTROPHILS # (AUTO) 13.7 K/uL (1.8-7.7); NEUTROPHILS % (AUTO) 87.2 % (42.2-75.2); PLATELET COUNT (AUTO) 221 K/uL (140-450); RED BLOOD CELL COUNT(AUTO) 5.54 MIL/uL (4.20-6.10); RED CELL DISTRIBUTION WIDTH 12.5 % (11.6-13.7); WHITE BLOOD COUNT (AUTO) 15.7 K/uL (4.8-10.8)
[2019-07-07 16:32] LABS: BILIRUBIN,URINE 2+ (NEGATIVE); BLOOD, URINE TRACE-I (NEGATIVE); LEUKOCYTE ESTERASE ,URINE NEGATIVE (NEGATIVE); NITRITE, URINE NEGATIVE (NEGATIVE); PH,URINE 6.5 (5.0-9.0); UGLUCOSE TRACE (NEGATIVE)
[2019-07-07 16:34] LABS: APPEARANCE,URINE HAZY (CLEAR)
[2019-07-07 16:35] LABS: COLOR,URINE AMBER (YELLOW)
[2019-07-07 16:42] LABS: WBC,URINE 0-5 /HPF (0-5)
[2019-07-07 16:44] LABS: BARBITURATE, URINE NEGATIVE ng/ml (NEG <=200); BENZODIAZEPINE, URINE NEGATIVE ng/mL (NEG <=200); CANNABINOID, URINE NEGATIVE ng/mL (NEG <=50); COCAINE, URINE NEGATIVE ng/mL (NEG <=300); OPIATE, URINE NEGATIVE ng/mL (NEG <=2000); PHENCYCLIDINE SCREEN,URINE NEGATIVE ng/mL (NEG <=25)
[2019-07-07 16:45] LABS: ACETAMINOPHEN < 0.5 ug/ml (10-30); ALBUMIN 4.8 g/dL (3.4-5.0); ANION GAP 16.6 (8-16); ASPARTATE AMINOTRANSFERASE 46 U/L (15-37); CARBON DIOXIDE 26.5 mmol/L (21-32); CHLORIDE 103 mmol/L (98-107); CREATININE 1.6 mg/dL (0.6-1.3); GFR ARICAN-AMERICAN 69 mL/min (>90); GLUCOSE 76 mg/dL (74-106); POTASSIUM 3.1 mmol/L (3.5-5.1); SALICYLATE < 2.8 mg/dL (2.8-20.0); SODIUM SERUM 143 mmol/L (136-145); TOTAL BILIRUBIN 1.1 mg/dL (0.0-1.0); UREA NITROGEN, BLOOD 12 mg/dL (7-18)
[2019-07-07] MEDS ORDERED: POTASSIUM CHLORIDE 10 MEQ TABER PO ONE (22:20)
[2019-07-08 10:53] VITALS: BP 142/88
== END 2019-07-08 10:52 | disposition home or self-care (01) ==
LOC: MED 14:56
DX: S02.40DA Maxillary fracture, left side, initial encounter for closed fracture (principal); W22.8XXA Striking against or struck by other objects, initial encounter; Y93.89 Activity, other specified; Y92.89 Other specified places as the place of occurrence of the external cause; Y99.8 Other external cause status
CPT/HCPCS: 36415; 70450; 70486; 80053; 80305; 81001; 85025; 87086; 99285; G0480; G0482

== ENCOUNTER 2019-08-30 11:57 | Emergency (ER) | payer OTHER ==
[~2019-08-30] VITALS: Ht 185.4 cm; Wt 108.9 kg
--- NOTE | 2019-08-30 12:06 | NUR ---
PT AMBULATED TO ER BED 12
[2019-08-30 12:27] VITALS: BP 136/85
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
--- NOTE | 2019-08-30 12:43 | NUR ---
TO CT SCAN VIA W/C
--- NOTE | 2019-08-30 13:03 | NUR ---
DR CERVANTES EVALUATING PT BEDSIDE
[2019-08-30] MEDS ORDERED: KETOROLAC 60 MG/2 ML VIAL IM ONE (13:20)
[2019-08-30] MEDS ORDERED: ONDANSETRON 4 MG ODT PO ONE (13:20)
--- NOTE | 2019-08-30 14:22 | NUR ---
Haydee KEANE recognized taking report from pt--pt report #[id number]
[2019-08-30 14:27] VITALS: BP 132/84
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
== END 2019-08-30 14:27 | disposition home or self-care (01) ==
LOC: MED 11:57
DX: S06.0X1A Concussion with loss of consciousness of 30 minutes or less, initial encounter (principal); Y04.2XXA Assault by strike against or bumped into by another person, initial encounter; Y93.89 Activity, other specified; Y92.89 Other specified places as the place of occurrence of the external cause; Y99.8 Other external cause status
CPT/HCPCS: 70450; 70486; 96372; 99285; J1885; Q0162

== ENCOUNTER 2020-02-22 19:30 | Emergency (ER) | payer OTHER ==
--- NOTE | 2020-02-22 19:40 | NUR ---
PATIENT CALLED TO BE TRIAGE NO ANSWER.
--- NOTE | 2020-02-22 19:43 | NUR ---
CALLED FOR THE SECOND TIME , NO RESPONSE
--- NOTE | 2020-02-22 19:46 | NUR ---
CALLED FOR THE THIRD TIME . NO RESPONSE PATIENT LEFT WITHOUT BEING SEEN BY DR. WEBBER. NO FURTHER CARE PROVIDED FOR PATIENT.
== END 2020-02-22 19:40 | disposition left against medical advice (07) ==
LOC: MED 19:30
DX: Z53.21 Procedure and treatment not carried out due to patient leaving prior to being seen by health care provider (principal)

== ENCOUNTER 2020-08-11 19:24 | Emergency (ER) | payer OTHER ==
[~2020-08-11] VITALS: Ht 188 cm; Wt 97.5 kg
[2020-08-11 19:24] VITALS: BP 129/79
--- NOTE | 2020-08-11 19:24 | NUR ---
PATIENT BIB [place]. PATIENT EXAMINED BY DR. WEBBER. PATIENT MEDICALLY CLEARED AND RELEASED IN CUSTODY IN STABLE CONDITION. ORIGINAL PRE-BOOK FORM GIVEN TO OFFICER ISABELLE MAIER NUMBER [id number].
--- NOTE | 2020-08-11 19:25 | NUR ---
GUR[employer]ER [employer] FOR PREBOOK. PT IS COMING FROM [place] D/T BEING UNRESPONSIVE. HERE FOR MEDICAL CLEARANCE PRIOR TO GOING TO [facility]. PT IS AWAKE, AIRWAY APTENT AND CLEAR. NO DISTRESS NOTED. PT REFUSES TO SPEAK OR ANSWER ANY QUESTIONS. STEADY GAIT NOTED. ALLERIGES: UNOBTAINABLE. PMH: '[id number]" PER [employer]
--- NOTE | 2020-08-11 19:26 | NUR ---
DR. WEBBER EXAMING PT AT THIS TIME.
--- NOTE | 2020-08-11 19:26 | NUR ---
JEAN-CLAUDE KEANE TO CHAIR Ashley
[2020-08-11 19:32] VITALS: BP 129/79
--- NOTE | 2020-08-11 19:32 | NUR ---
Patient discharged with v/s stable. Written and verbal after care instructions given and explained. In custody BY FUNMI KEANE. All questions addressed prior to discharge. Advised to follow up with PMD.
== END 2020-08-11 19:32 ==
LOC: MED 19:24
DX: Z02.89 Encounter for other administrative examinations (principal)
CPT/HCPCS: 99283

== ENCOUNTER 2020-11-20 17:38 | Emergency (ER) | payer OTHER ==
[~2020-11-20] VITALS: Ht 190.5 cm; Wt 97.5 kg
--- NOTE | 2020-11-20 17:45 | NUR ---
Pt ambulated to bed 04.
[2020-11-20 17:48] VITALS: BP 139/84
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
[2020-11-20] MEDS ORDERED: IBUPROFEN 600 MG TAB PO ONE (18:45)
--- NOTE | 2020-11-20 18:45 | NUR ---
PT ALERT AND AWAKE, BREATHING EVEN AND UNLABORED. NO DISTRESS NOTED. ALL NEEDS MET AT THIS TIME
--- NOTE | 2020-11-20 19:13 | NUR ---
REPORT GIVEN TO SUMAYA RN, TRANSFER OF CARE AT THIS TIME
--- NOTE | 2020-11-20 19:20 | NUR ---
PT. ON HIS PHONE SITTING ON BED, VOICES NO COMPLAINTS AT THIS TIME.
[2020-11-20] MEDS ORDERED: IBUP-2213 PO (19:39)
--- NOTE | 2020-11-20 19:40 | NUR ---
PT. DISCHARGED WITHOUT D/C PAPERS.
== END 2020-11-20 19:40 | disposition home or self-care (01) ==
LOC: MED 17:38
DX: R51.9 Headache, unspecified (principal); R03.0 Elevated blood-pressure reading, without diagnosis of hypertension; Z79.899 Other long term (current) drug therapy
CPT/HCPCS: 70150; 99283

== ENCOUNTER 2022-08-28 03:15 | Emergency (ER) | payer OTHER ==
[~2022-08-28] VITALS: Ht 160 cm; Wt 108.9 kg
[~2022-08-28 03:15] MED LIST changes: -ESCI20TA47 PO; +IBUP-2213 PO; -RIS1 PO; -TRAZ-466 PO
[2022-08-28 04:02] VITALS: BP 136/91
[2022-08-28] MEDS ORDERED: LORazepam 1 MG TAB PO ONE (04:05)
[2022-08-28 04:10] VITALS: BP 136/91
--- NOTE | 2022-08-28 04:15 | NUR ---
PT AMBULATE TO ROOM 8
--- NOTE | 2022-08-28 04:15 | NUR ---
27YR OLD MALE BIB SELF C/O OF ANXIETY S/P DRUG USE. PT STATES HE USED METH 2 HRS AGO NOW IS FEELING ANXIOUS. PT STATES HE HAS BEEN TRYING TO STOP USING METH FOR LAST 2 WEEKS. A&OX4 DENIES PAIN CP OR SOB. PT IS ON BEDSIDE CREMATORY OPERATOR. VS WNL. NKDA NO MED HX
[2022-08-28] MEDS ORDERED: ATA25 PO (06:20)
== END 2022-08-28 06:30 | disposition home or self-care (01) ==
LOC: MED 03:15
DX: F15.10 Other stimulant abuse, uncomplicated (principal); F41.9 Anxiety disorder, unspecified; Z79.899 Other long term (current) drug therapy
CPT/HCPCS: 99283